=== PATIENT | female | born 1985 | race Caucasian/White ===

== ENCOUNTER → 2016-11-25 | Outpatient (CLI) | payer MEDICAID, OTHER ==
[2016-11-25 14:54] LABS: ALT 47 U/L (9-52); AST 34 U/L (14-36); Alkaline Phosphatase 76 U/L (38-126); Anion Gap 12 mmol/L; Blood Urea Nitrogen 13 mg/dL (7-17); Calcium 9.9 mg/dL (8.4-10.2); Carbon Dioxide 27 mmol/L (22-30); Chloride 101 mmol/L (98-107); Cholesterol 169 mg/dL (<200); Glucose 101 mg/dL (74-99); HDL Cholesterol 91 mg/dL (40-60); Non-African American GFR(MDRD) >60 (>60 ml/min/1.73 sqM); Potassium 4.6 mmol/L (3.5-5.1); Sodium 140 mmol/L (137-145); Total Bilirubin 0.6 mg/dL (0.2-1.3); Total Protein 7.7 g/dL (6.3-8.2); Triglycerides 240 mg/dL (<150)
[2016-11-25 15:09] LABS: HCG,Quantitative Serum <2.4 mIU/mL
== END | disposition home or self-care (01) ==
LOC: LABWHC1 13:59
PROVIDERS: ATTEND Internal Medicine
DX: L70.8 Other acne (principal)
CPT/HCPCS: 36415; 80053; 80061; 84439; 84443; 84702

== ENCOUNTER 2017-11-23 08:55 | Emergency (ER) | payer MEDICAID, OTHER ==
[2017-11-23 09:04] VITALS: BP 160/89; PULSE 114; RESP 18; TEMP 98.9
--- NOTE | 2017-11-23 09:43 | ED ---
General Adult HPI - General Chief complaint: Extremity Injury, Upper Stated complaint: Broken arm Time Seen by Provider: 11/23/17 09:18 Source: patient, RN notes reviewed Mode of arrival: ambulatory Limitations: no limitations - History of Present Illness Initial comments: Patient is a 32-year-old female who presents emergency room today with a chief complaint of injury to the right wrist that occurred last approximate of 30. States that she tripped over some shoes falling backwards landing on the right wrist. She states it was outstretched. She does admit to more pain to the posterior radius. Patient states worse with movements of flexion and extension. Patient also admits to pain when she moves her fingers feeling the back and right wrist. Swelling to the area. She denies any other complaints. Patient denies any recent fever, chills, shortness of breath, chest pain, back pain, abdominal pain, nausea or vomiting, numbness or tingling, headaches or visual changes, or any other complaints. - Related Data Home Medications Medication Instructions Recorded Confirmed Cetirizine HCl [Zyrtec] 10 mg PO DAILY 06/07/16 11/23/17 Ibuprofen [Motrin] 600 mg PO Q8HR PRN 06/07/16 11/23/17 Norethindrone AC-Eth Estradiol 1 tab PO DAILY 06/07/16 11/23/17 [Loestrin 21 1-20 Tablet] DULoxetine HCL [Cymbalta] 90 mg PO DAILY 11/23/17 11/23/17 Lisdexamfetamine Dimesylate 30 mg PO QAM 11/23/17 11/23/17 [Vyvanse] Previous Rx's Medication Instructions Recorded Ibuprofen [Motrin] 600 mg PO Q6HR PRN #40 day 11/23/17 Allergies Allergy/AdvReac Type Severity Reaction Status Date / Time Tetracyclines AdvReac Nausea & Verified 11/23/17 09:40 Vomiting & Diarrhea Review of Systems ROS Statement: Those systems with pertinent positive or pertinent negative responses have been documented in the HPI. ROS Other: All systems not noted in ROS Statement are negative. Past Medical History Past Medical History: No Reported History History of Any Multi-Drug Resistant Organisms: None Reported Past Surgical History: Cholecystectomy Additional Past Surgical History / Comment(s): right knee scope Past Psychological History: Anxiety, Depression Smoking Status: Current every day smoker Past Alcohol Use History: Occasional Past Drug Use History: None Reported General Exam - General Exam Comments Initial Comments: General: The patient is awake and alert, in no distress, and does not appear acutely ill. Neck: The neck is supple. Musculoskeletal: Patient does have moderate swelling in the right wrist down to the right hand. She shows limited range motional flexion and extension at the right wrist. Able to fully open and close fingers. Able to fully open and extend at the right elbow there is no tenderness down into the digits or the right elbow. She is tender mildly over the distal ulna with increased tenderness to the distal radius. Her sensations are intact pulses equal bilaterally 2+. Neurological: A&O x 3. CN II-XII intact, There are no obvious motor or sensory deficits. Coordination appears grossly intact. Speech is normal. Skin: Skin is warm and dry and no rashes or lesions are noted. Psychiatric: Normal mood and affect. Limitations: no limitations Course Vital Signs 11/23/17 09:01 Temperature 98.9 F Pulse Rate 114 H Respiratory 18 Rate Blood Pressure 160/89 O2 Sat by Pulse 100 Oximetry Medical Decision Making - Medical Decision Making Patient's x-ray of the right wrist reviewed and does show a avulsion type fracture of the distal radius. Patient has been splinted in a short arm thumb spica. Neurovascular rechecked and intact. Patient is advised follow-up with orthopedics. Advised to return to emergency room for any other concerns. Disposition Clinical Impression: Wrist fracture, right Disposition: HOME SELF-CARE Condition: Good Instructions: Wrist Fracture in Adults (ED) Additional Instructions: Please see splinted place until follow-up with orthopedics. Please continue to ice elevate the affected area at least 4 times a day for 20 minutes at a time. Please use Tylenol/ibuprofen for pain as needed. Please return to emergency room for any symptoms increase or worsen or for any other concerns. Prescriptions: Ibuprofen [Motrin] 600 mg PO Q6HR PRN #40 day PRN Reason: Pain Referrals: Sunitha Song MD [Primary Care Provider] - 1-2 days Sai Benitez MD [Medical Doctor] - 1-2 days Time of Disposition: 09:54
--- NOTE | 2017-11-23 10:46 | XR ---
EXAMINATION TYPE: XR wrist complete RT , 4 VIEWS DATE OF EXAM ORDERED: 11/23/2017 HISTORY: Pain. COMPARISON: None. FINDINGS: There is a minimally displaced fracture of the posterior aspect of the distal radius. Ther e is associated soft tissue swelling. IMPRESSION: MINIMALLY DISPLACED FRACTURE OF THE POSTERIOR ASPECT OF THE DISTAL RADIUS. CODE A: INITIAL ENCOUNTER FOR CLOSED FRACTURE.
== END 2017-11-23 10:15 | disposition home or self-care (01) ==
LOC: EC 08:55
DX: S52.501A Unspecified fracture of the lower end of right radius, initial encounter for closed fracture (principal); F32.9 Major depressive disorder, single episode, unspecified; F41.9 Anxiety disorder, unspecified; F17.200 Nicotine dependence, unspecified, uncomplicated; Z79.3 Long term (current) use of hormonal contraceptives; Z79.899 Other long term (current) drug therapy; Z88.1 Allergy status to other antibiotic agents; W01.0XXA Fall on same level from slipping, tripping and stumbling without subsequent striking against object, initial encounter
CPT/HCPCS: 29125; 99283

== ENCOUNTER → 2017-12-04 | Outpatient (CLI) | payer MEDICAID, OTHER ==
--- NOTE | 2017-12-04 14:57 | XR ---
EXAMINATION TYPE: XR chest 2V DATE OF EXAM: 12/04/2017 COMPARISON: NONE TECHNIQUE: PA and lateral views submitted. HISTORY: Cough FINDINGS: The lungs are clear and there is no pneumothorax, pleural effusion, or focal pneumonia. Surgical cl ips in the right upper quadrant abdomen. IMPRESSION: 1. No acute process.
== END | disposition home or self-care (01) ==
LOC: RADXRYALE 14:22
PROVIDERS: ATTEND Internal Medicine
DX: R05 Cough (principal)
CPT/HCPCS: 71046

== ENCOUNTER → 2017-12-09 | Outpatient (CLI) | payer MEDICAID, OTHER ==
[2017-12-11 14:52] LABS: Alt. alternata IgE Class CLASS 0; Alternaria alternata IgE <0.35 kU/L (<0.35); Asperg. fumagatus IgE <0.35 kU/L (<0.35); Asperg. fumagatus IgE Class CLASS 0; Bermuda Grass IgE <0.35 kU/L (<0.35); Birch(Com.Silvr) IgE <0.35 kU/L (<0.35); Birch(Com.Silvr) IgE Class CLASS 0; Cat Epith & Dander IgE <0.35 kU/L (<0.35); Cat Epith & Dander IgE Class CLASS 0; Clad herbarum IgE <0.35 kU/L (<0.35); Cockroach IgE <0.35 kU/L (<0.35); Cottonwood IgE <0.35 kU/L (<0.35); Dermato. Pteronyssinus IgE <0.35 kU/L (<0.35); Dermato. farinae IgE <0.35 kU/L (<0.35); Dermato. farinae IgE Class CLASS 0; Dog Dander IgE <0.35 kU/L (<0.35); Elm IgE <0.35 kU/L (<0.35); Maple (Box Elder) IgE <0.35 kU/L (<0.35); Maple (Box Elder) IgE Class CLASS 0; Mountain Cedar IgE <0.35 kU/L (<0.35); Mountain Cedar IgE Class CLASS 0; Mouse Urine IgE Class CLASS 0; Nettle IgE <0.35 kU/L (<0.35); Nettle IgE Class CLASS 0; Oak IgE <0.35 kU/L (<0.35); Penicillium notatum IgE Class CLASS 0; Rough Marshelder IgE <0.35 kU/L (<0.35); Rough Marshelder IgE Class CLASS 0; Timothy Grass IgE <0.35 kU/L (<0.35); White Ash IgE Class CLASS 0
[2017-12-14 23:20] LABS: Alternaria Alternata IgG 2.7 mcg/mL (< 13.6); Aspergillus fumigatus IgG Not detected (Not detected); Aureobasidium pullulans IgG 3.5 mcg/mL (< 13.6); Cladosporium herbarium IgG 21.4 mcg/mL (< 14.7); Phoma ssp. IgG 4.5 mcg/mL (< 6.6); Saccaharomospora viridis Not detected (Not detected); Saccaharopoly. rectivirgula Not detected (Not detected)
== END | disposition home or self-care (01) ==
LOC: LABWHC1 16:25
PROVIDERS: ATTEND Internal Medicine Sleep Medicine
DX: B44.81 Allergic bronchopulmonary aspergillosis (principal)
CPT/HCPCS: 36415; 82785; 86001; 86003; 86606; 86609

== ENCOUNTER 2018-07-20 15:24 | Emergency (ER) | payer OTHER ==
[2018-07-20 15:29] VITALS: TEMP 98.2
--- NOTE | 2018-07-20 15:51 | ED ---
General Adult HPI - General Chief complaint: Recheck/Abnormal Lab/Rx Stated complaint: HTN Source: patient, RN notes reviewed Mode of arrival: ambulatory Limitations: no limitations - History of Present Illness Initial comments: 33-year-old female presents emergency Department chief complaint of hypertension. 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 Patient states that she went to PCPs office today and they rechecked it 3 times. She states the highest was 190/110. Patient states that she was apprised that she had a go directly to the emergency Department. She states that she has never been on any medications. She denies headache, dizziness, chest pain or shortness breath, nausea, vomiting diarrhea constipation. Patient states she has had recent weight gain secondary to being off work related to fatigue and fibromyalgia. Patient states that they have not even tried her on medication for her hypertension. - Related Data Home Medications Medication Instructions Recorded Confirmed Cetirizine HCl [Zyrtec] 10 mg PO DAILY 06/07/16 07/20/18 DULoxetine HCL [Cymbalta] 60 mg PO DAILY 07/20/18 07/20/18 Ibuprofen [Advil] 200 mg PO BID 07/20/18 07/20/18 Ibuprofen [Motrin Ib] 200 mg PO Q6H PRN 07/20/18 07/20/18 Multivitamins, Thera [Multivitamin 1 tab PO DAILY 07/20/18 07/20/18 (formulary)] Pregabalin [Lyrica] 75 mg PO DAILY 07/20/18 07/20/18 Ranitidine HCl [Zantac] 150 mg PO BID PRN 07/20/18 07/20/18 Vitamin B Complex 1 cap PO DAILY 07/20/18 07/20/18 Vitamin D3(Unknown Dose) 1 tab PO DAILY 07/20/18 07/20/18 Previous Rx's Medication Instructions Recorded Lisinopril [Zestril] 10 mg PO DAILY #30 tab 07/20/18 Allergies Allergy/AdvReac Type Severity Reaction Status Date / Time Tetracyclines AdvReac Nausea & Verified 07/20/18 15:47 Vomiting & Diarrhea Review of Systems ROS Statement: Those systems with pertinent positive or pertinent negative responses have been documented in the HPI. ROS Other: All systems not noted in ROS Statement are negative. Past Medical History Past Medical History: No Reported History History of Any Multi-Drug Resistant Organisms: None Reported Past Surgical History: Cholecystectomy Additional Past Surgical History / Comment(s): right knee scope Past Psychological History: Anxiety, Depression Smoking Status: Current every day smoker Past Alcohol Use History: Occasional Past Drug Use History: None Reported General Exam Limitations: no limitations General appearance: alert, in no apparent distress Head exam: Present: atraumatic, normocephalic, normal inspection Eye exam: Present: normal appearance, PERRL, EOMI. Absent: scleral icterus, conjunctival injection, periorbital swelling ENT exam: Present: normal exam, normal oropharynx, mucous membranes moist Neck exam: Present: normal inspection, full ROM. Absent: tenderness, meningismus, lymphadenopathy Respiratory exam: Present: normal lung sounds bilaterally. Absent: respiratory distress, wheezes, rales, rhonchi, stridor Cardiovascular Exam: Present: regular rate, normal rhythm, normal heart sounds. Absent: systolic murmur, diastolic murmur, rubs, gallop, clicks Neurological exam: Present: alert, oriented X3, CN II-XII intact Psychiatric exam: Present: anxious Skin exam: Present: warm, dry, intact, normal color. Absent: rash Course Vital Signs 07/20/18 07/20/18 15:26 16:03 Temperature 98.2 F Pulse Rate 104 H Respiratory 20 Rate Blood Pressure 164/95 172/108 O2 Sat by Pulse 100 Oximetry EKG Findings - EKG Comments: EKG Findings:: EKG performed at 16:00 normal sinus rhythm with a rate of 95 [place] 182 QRS 82 QT/QTC 360/452 Medical Decision Making - Medical Decision Making 33-year-old female presents emergency from for hypertension. Patient's blood pressure has been elevated on several outpatient visits. Patient was sent here from PCP for elevated blood pressure which has not been treated with any medications. Patient's lab work was reviewed that she had drawn this morning which was essentially unremarkable other than mild hyponatremia at 133 potassium was 4.2 creatinine 0.9 normal LFTs. Patient is hemoglobin is 13.6 with a white count of 7.0. Remaining lab work was unremarkable. Patient did have an EKG which was unremarkable in the emergency department. Patient was started on lisinopril 10 mg daily she'll track her blood pressure at home and follow for recheck. Return parameters discussed Disposition Clinical Impression: Hypertension Disposition: HOME SELF-CARE Condition: Stable Instructions: Hypertension (ED) Additional Instructions: Please return to the Emergency Department if symptoms worsen or any other concerns. Prescriptions: Lisinopril [Zestril] 10 mg PO DAILY #30 tab Is patient prescribed a controlled substance at d/c from ED?: No Referrals: Sunitha Song MD [Primary Care Provider] - 1-2 days Time of Disposition: 16:30
[2018-07-20] MEDS ORDERED: LISINOPRIL 10 MG TAB PO STA (16:02)
[2018-07-20 16:50] VITALS: BP 176/102; PULSE 96; RESP 18
== END 2018-07-20 16:48 | disposition home or self-care (01) ==
LOC: EC 15:24
DX: I10 Essential (primary) hypertension (principal); E87.1 Hypo-osmolality and hyponatremia; R63.5 Abnormal weight gain; R53.83 Other fatigue; M79.7 Fibromyalgia; F32.9 Major depressive disorder, single episode, unspecified; F41.9 Anxiety disorder, unspecified; F17.200 Nicotine dependence, unspecified, uncomplicated; Z88.1 Allergy status to other antibiotic agents; Z79.1 Long term (current) use of non-steroidal anti-inflammatories (NSAID); Z79.899 Other long term (current) drug therapy
CPT/HCPCS: 93005; 99283

== ENCOUNTER → 2018-08-07 | Outpatient (CLI) | payer OTHER ==
--- NOTE | 2018-08-09 14:31 | MR ---
EXAMINATION TYPE: MR brain/cspine wo/w DATE OF EXAM: 08/07/2018 COMPARISON: None HISTORY: Headache, neck pain, stiffness, louie arm/leg numbness TECHNIQUE: Multiplanar, multisequence images of the brain and brainstem, cervical spine is performed without and with IV contrast, utilizing 12 mL intravenous Gadavist . FINDINGS: Diffusion weighted images demonstrate no evidence of a recent infarct or other diffusion ab normality. There is no extra-axial fluid collection or significant white matter signal abnormality. The ventricular system and cisternal spaces are normal in size and appearance. The brain volume is age appropriate. Midline structures demonstrate normal morphology. The craniocervical junction appears within normal limits. Post contrast images demonstrate no abnormal enhancement. The dural venous sinuses appear pa tent. The visualized sinuses are remarkable for inflammatory change in the maxillary sinuses left gre ater than right, ethmoid air cells and the globes are intact. IMPRESSION: Normal brain MRI pre and postcontrast. There is sinus disease. Cervical spine MRI: Cervical vertebral bodies show preserved height and alignment. There is loss of d isc height and signal present at C5-6 with associated spondylosis. Posterior extension of endplate di sc complex results in some mild anterior mass effect on the thecal sac. Uncovertebral joint hypertrop hy results in foraminal encroachment greater on the left than on the right. Cervical cord signal is n ormal. Remaining cervical spine levels are normal. There is some enhancement posterior to the disc space at C5-6 likely some local granulation tissue. IMPRESSION: Mild degenerative disc disease.
== END ==
LOC: RADMRIMAIN 19:53
PROVIDERS: ATTEND Psychiatry & Neurology Neurology
DX: R51 Headache (principal); M50.30 Other cervical disc degeneration, unspecified cervical region
CPT/HCPCS: 70553; 72156; A9581

== ENCOUNTER → 2019-01-13 | Outpatient (CLI) | payer OTHER ==
[2019-01-13 12:36] LABS: Basophils % (A) 0 %; Eosinophils # (A) 0.2 k/uL (0-0.7); Eosinophils % (A) 3 %; HCT 43.5 % (34.0-46.0); HGB 13.6 gm/dL (11.4-16.0); Lymphocytes # (A) 2.6 k/uL (1.0-4.8); Lymphocytes % (A) 30 %; MCH 27.7 pg (25.0-35.0); MCHC 31.3 g/dL (31.0-37.0); MCV 88.4 fL (80.0-100.0); Mean Platelet Volume 6.5; Monocytes # (A) 0.4 k/uL (0-1.0); Monocytes % (A) 5 %; Neutrophils # (A) 5.3 k/uL (1.3-7.7); Neutrophils % (A) 61 %; Platelet Count 280 k/uL (150-450); RBC 4.92 m/uL (3.80-5.40); RDW 13.1 % (11.5-15.5); WBC 8.7 k/uL (3.8-10.6)
[2019-01-13 14:05] LABS: Erythrocyte Sedimentation Rate 8 mm/hr (0-20)
[2019-01-13 16:50] LABS: Anti-DNA, DS unit <1.0 IU/mL; Cyclic Citrullinated Pep IgG NEGATIVE (NEGATIVE); DNA Double-Stranded NEGATIVE (NEGATIVE); RNP <0.2 AI; Rheumatoid Factor 8 IU/mL (0-15); Scleroderma SC-70 Ab 0.3 AI
[2019-01-13 16:51] LABS: Cardiolipin IgA Antibody <0.5 U/mL
[2019-01-13 16:52] LABS: Cardiolipin Ab IgG Interp NEGATIVE (NEGATIVE); Cardiolipin Ab IgM Interp NEGATIVE (NEGATIVE); Cardiolipin IgM Antibody 1.8 U/mL
[2019-01-13 16:53] LABS: EBV-VCA (IgG) >8.0 AI
[2019-01-13 16:59] LABS: C Reactive Protein 1.7 mg/dL (0.0-0.8); T3, Uptake 26 % (23-37)
[2019-01-13 17:08] LABS: T4, Free (Free Thyroxine) 1.1 ng/dL (0.80-1.80)
[2019-01-14 12:11] LABS: T4/T8 Ratio (CD4:CD8) 1.9 (1.0-3.7)
[2019-01-14 12:51] LABS: IgG Subclass 3 29.3 mg/dL (11.0-85.0); IgG Subclass 4 31.4 mg/dL (3.0-175.0); Immunoglobulin M 76.4 mg/dL (40.0-280.0)
[2019-01-15 13:30] LABS: Histone Antibody 0.3 UNITS (<1.0)
== END | disposition home or self-care (01) ==
LOC: LABWHC1 11:14
PROVIDERS: ATTEND Allergy & Immunology
DX: D89.89 Other specified disorders involving the immune mechanism, not elsewhere classified (principal)
CPT/HCPCS: 36415; 82784; 82785; 82787; 83516; 83615; 84439; 84443; 84479; 84481; 85025; 85652; 86003; 86038; 86140; 86147; 86200; 86225; 86235; 86317; 86355; 86357; 86359; 86360; 86431; 86663; 86664; 86665; 86684

== ENCOUNTER 2019-02-16 18:16 | Emergency (ER) | payer OTHER ==
[2019-02-16 18:24] VITALS: RESP 18
[2019-02-16] MEDS ORDERED: MECLIZINE 12.5 MG TAB PO STA (19:00)
[2019-02-16] MEDS ORDERED: SODIUM CHLORIDE 0.9% 1,000 ML IV STA (19:00)
[2019-02-16 19:22] LABS: ALT 32 U/L (9-52); AST 40 U/L (14-36); Albumin 4.7 g/dL (3.5-5.0); Alkaline Phosphatase 84 U/L (38-126); Anion Gap 11 mmol/L; Blood Urea Nitrogen 11 mg/dL (7-17); Carbon Dioxide 23 mmol/L (22-30); Chloride 104 mmol/L (98-107); Glucose 91 mg/dL (74-99); Sodium 138 mmol/L (137-145); Total Bilirubin 0.7 mg/dL (0.2-1.3); Total Protein 7.4 g/dL (6.3-8.2)
[2019-02-16 19:23] LABS: Basophils % (A) 0 %; Eosinophils # (A) 0.1 k/uL (0-0.7); Eosinophils % (A) 1 %; HCT 43.1 % (34.0-46.0); HGB 14.4 gm/dL (11.4-16.0); Lymphocytes # (A) 2.4 k/uL (1.0-4.8); Lymphocytes % (A) 27 %; MCH 28.9 pg (25.0-35.0); MCHC 33.5 g/dL (31.0-37.0); MCV 86.2 fL (80.0-100.0); Mean Platelet Volume 7.3; Monocytes # (A) 0.3 k/uL (0-1.0); Monocytes % (A) 4 %; Neutrophils # (A) 5.9 k/uL (1.3-7.7); Neutrophils % (A) 66 %; Platelet Count 286 k/uL (150-450); RDW 13.6 % (11.5-15.5)
[2019-02-16 19:28] LABS: INR 0.9 (<1.2); Partial Thromboplastin Time 24.6 sec (22.0-30.0); Prothrombin Time 9.5 sec (9.0-12.0)
--- NOTE | 2019-02-16 19:52 | XR ---
EXAMINATION: XR chest 2V DATE AND TIME: 02/16/2019 7:34 PM CLINICAL INDICATION: PHH; Dyspnea TECHNIQUE: Departmental protocol COMPARISON: None FINDINGS: The lungs are clear. The pleural spaces are negative. The cardiac silhouette is not enlarged. The remainder of the mediastinal silhouette is unremarkable. The skeletal structures and soft tissues are negative for acute findings. IMPRESSION: NO ACUTE PROCESS.
[2019-02-16 20:03] LABS: Appearance,Urine Clear (Clear); Bilirubin,Urine Negative (Negative); Blood,Urine Negative (Negative); Color,Urine Light Yellow; Glucose,Urine (UA) Negative (Negative); Ketones,Urine Negative (Negative); Leukocyte Esterase,Urine Negative (Negative); Nitrite,Urine Negative (Negative); PH, Urine 6.5 (5.0-8.0); Protein,Urine Negative (Negative); Specific Gravity,Urine 1.003 (1.001-1.035); Urobilinogen,Urine <2.0 mg/dL (<2.0)
--- NOTE | 2019-02-16 20:15 | ED ---
Dizziness HPI - General Chief Complaint: Dizziness Stated Complaint: Dizziness Time Seen by Provider: 02/16/19 18:35 Source: patient Mode of arrival: wheelchair Limitations: no limitations - History of Present Illness Initial Comments: 33-year-old female patient presents to the emergency department today for evaluation of dizziness, weakness, and paresthesia to the bilateral hands and feet. Patient states that she has been feeling unwell over the last several weeks however the laceration is felt more fatigued and weak. Patient states that today she got in the hot tub this evening help her feel better when she got out of the hot tub she became very dizzy. Patient states that the numbness and tingling became worse. Patient states that she did have a snack and might down to see what would help her feel better but it did not. Patient states he remains dizzy even neurovascular does worsen when she stands up. This history is also having ringing in her ears. Denies any headache, blurred vision, or double vision. Denies any nausea or vomiting or chest pain. States that she is having some shortness of breath with this. Patient states that she was diagnosed with mono several weeks ago she did recently complete a prescription of antibiotics. She is being worked up for an autoimmune disorder by an cloth finisher. Patient denies any recent rash, fever, chills, abdominal pain, diarrhea, constipation, back pain, dizziness, weakness, hematuria, dysuria, urinary urgency, urinary frequency, or any other complaints. - Related Data Home Medications Medication Instructions Recorded Confirmed Cetirizine HCl [Zyrtec] 10 mg PO DAILY 06/07/16 02/16/19 Ibuprofen [Motrin Ib] 200 - 400 mg PO Q6H PRN 07/20/18 02/16/19 Multivitamins, Thera [Multivitamin 1 tab PO DAILY 07/20/18 02/16/19 (formulary)] Cholecalciferol [Vitamin D3] 1,000 unit PO DAILY 02/16/19 02/16/19 Magnesium 200 mg PO DAILY 02/16/19 02/16/19 Previous Rx's Medication Instructions Recorded Lisinopril [Zestril] 10 mg PO DAILY #30 tab 07/20/18 Allergies Allergy/AdvReac Type Severity Reaction Status Date / Time Tetracyclines AdvReac Nausea & Verified 02/16/19 18:47 Vomiting & Diarrhea Review of Systems ROS Statement: Those systems with pertinent positive or pertinent negative responses have been documented in the HPI. ROS Other: All systems not noted in ROS Statement are negative. Past Medical History Past Medical History: No Reported History History of Any Multi-Drug Resistant Organisms: None Reported Past Surgical History: Cholecystectomy Additional Past Surgical History / Comment(s): right knee scope Past Psychological History: Anxiety, Depression Smoking Status: Current every day smoker Past Alcohol Use History: Occasional Past Drug Use History: None Reported General Exam Limitations: no limitations General appearance: alert, in no apparent distress, other (Physical well-develop ed, well-nourished adult female patient in no acute distress. Vital signs upon presentation are temperature 98.0F, pulse 104, respirations 18, blood pressure 140/90, pulse ox 100% on room air.) Eye exam: Present: normal appearance, PERRL, EOMI. Absent: scleral icterus, co njunctival injection, nystagmus, periorbital swelling ENT exam: Present: normal exam, normal oropharynx, mucous membranes moist, TM's normal bilaterally Respiratory exam: Present: normal lung sounds bilaterally. Absent: respiratory distress, wheezes, rales, rhonchi, stridor Cardiovascular Exam: Present: normal rhythm, tachycardia, normal heart sounds. Absent: systolic murmur, diastolic murmur, rubs, gallop, clicks GI/Abdominal exam: Present: soft, normal bowel sounds. Absent: distended, tende rness, guarding, rebound, rigid Neurological exam: Present: alert, oriented X3, CN II-XII intact Psychiatric exam: Present: normal affect, normal mood Skin exam: Present: warm, dry, intact, normal color. Absent: rash Course Vital Signs 02/16/19 02/16/19 02/16/19 18:21 18:45 19:12 Temperature 98.0 F Pulse Rate 104 H Pulse Rate [ 106 H 105 H [place] ] Respiratory 18 18 Rate Blood Pressure 149/90 Blood Pressure [Sitting] Blood Pressure [Standing] Blood Pressure 147/97 [Supine] O2 Sat by Pulse 100 Oximetry 02/16/19 02/16/19 02/16/19 19:14 19:17 21:15 Temperature Pulse Rate 103 H Pulse Rate [ 101 H 112 H [place] ] Respiratory 18 18 18 Rate Blood Pressure 129/82 Blood Pressure 175/119 [Sitting] Blood Pressure 157/122 [Standing] Blood Pressure [Supine] O2 Sat by Pulse 98 97 Oximetry 02/16/19 02/16/19 02/16/19 21:48 22:28 22:32 Temperature 98.5 F Pulse Rate 98 99 Pulse Rate [ [place] ] Respiratory 18 18 Rate Blood Pressure 139/84 127/80 114/60 Blood Pressure [Sitting] Blood Pressure [Standing] Blood Pressure [Supine] O2 Sat by Pulse 100 99 Oximetry EKG Findings - EKG Comments: EKG Findings:: EKG obtained at 1925 shows sinus tachycardia with a ventricular rate of 103, TN interval 180, QRS duration 86, QT 352, QTc 461. No evidence of ST elevation or depression. Medical Decision Making - Medical Decision Making 33-year-old female patient presents to the emergency department today for evaluation of dizziness, paresthesia to the bilateral hands and bilateral feet, and generalized weakness. Physical examination is unremarkable. Patient is neurologically intact with no focal deficits. Labs reviewed and were unremarkable. Chest x-ray showed no acute cardiopulmonary process. Patient was given meclizine. Upon reevaluation patient states that she is not feeling any better. She was given IV Valium and a CT of the brain was ordered. CT was unremarkable. Patient reports feeling tired from the Valium but no improvement of symptoms. Patient remains neurologically intact. She will be discharged home at this time to follow-up with her primary care physician for recheck. We did discuss that they mono infection could be causing her symptoms. She is instructed to follow-up with her cloth finisher for recheck as soon as possible. Return parameters were discussed in detail. She verbalizes understanding. - Lab Data Result diagrams: 02/16/19 18:43 02/16/19 18:43 Lab Results 02/16/19 02/16/19 02/16/19 Range/Units 18:43 18:43 18:43 WBC 9.0 (3.8-10.6) k/uL RBC 5.00 (3.80-5.40) m/uL Hgb 14.4 (11.4-16.0) gm/dL Hct 43.1 (34.0-46.0) % MCV 86.2 (80.0-100.0) fL MCH 28.9 (25.0-35.0) pg MCHC 33.5 (31.0-37.0) g/dL RDW 13.6 (11.5-15.5) % Plt Count 286 (150-450) k/uL Neutrophils % 66 % Lymphocytes % 27 % Monocytes % 4 % Eosinophils % 1 % Basophils % 0 % Neutrophils # 5.9 (1.3-7.7) k/uL Lymphocytes # 2.4 (1.0-4.8) k/uL Monocytes # 0.3 (0-1.0) k/uL Eosinophils # 0.1 (0-0.7) k/uL Basophils # 0.0 (0-0.2) k/uL PT 9.5 (9.0-12.0) sec INR 0.9 (<1.2) APTT 24.6 (22.0-30.0) sec Sodium 138 (137-145) mmol/L Potassium 5.0 (3.5-5.1) mmol/L Chloride 104 (98-107) mmol/L Carbon Dioxide 23 (22-30) mmol/L Anion Gap 11 mmol/L BUN 11 (7-17) mg/dL Creatinine 0.67 (0.52-1.04) mg/dL Est GFR (CKD-EPI)AfAm >90 (>60 ml/min/1.73 sqM) Est GFR (CKD-EPI)NonAf >90 (>60 ml/min/1.73 sqM) Glucose 91 (74-99) mg/dL Calcium 10.0 (8.4-10.2) mg/dL Total Bilirubin 0.7 (0.2-1.3) mg/dL AST 40 H (14-36) U/L ALT 32 (9-52) U/L Alkaline Phosphatase 84 (38-126) U/L Troponin I (0.000-0.034) ng/mL Total Protein 7.4 (6.3-8.2) g/dL Albumin 4.7 (3.5-5.0) g/dL TSH 2.480 (0.465-4.680) mIU/L Urine Color Urine Appearance (Clear) Urine pH (5.0-8.0) Ur Specific [place] (1.001-1.035) Urine Protein (Negative) Urine Glucose (UA) (Negative) Urine Ketones (Negative) Urine Blood (Negative) Urine Nitrite (Negative) Urine Bilirubin (Negative) Urine Urobilinogen (<2.0) mg/dL Ur Leukocyte Esterase (Negative) Urine HCG, Qual (Not Detectd) 02/16/19 02/16/19 02/16/19 Range/Units 18:43 19:30 19:30 WBC (3.8-10.6) k/uL RBC (3.80-5.40) m/uL Hgb (11.4-16.0) gm/dL Hct (34.0-46.0) % MCV (80.0-100.0) fL MCH (25.0-35.0) pg MCHC (31.0-37.0) g/dL RDW (11.5-15.5) % Plt Count (150-450) k/uL Neutrophils % % Lymphocytes % % Monocytes % % Eosinophils % % Basophils % % Neutrophils # (1.3-7.7) k/uL Lymphocytes # (1.0-4.8) k/uL Monocytes # (0-1.0) k/uL Eosinophils # (0-0.7) k/uL Basophils # (0-0.2) k/uL PT (9.0-12.0) sec INR (<1.2) APTT (22.0-30.0) sec Sodium (137-145) mmol/L Potassium (3.5-5.1) mmol/L Chloride (98-107) mmol/L Carbon Dioxide (22-30) mmol/L Anion Gap mmol/L BUN (7-17) mg/dL Creatinine (0.52-1.04) mg/dL Est GFR (CKD-EPI)AfAm (>60 ml/min/1.73 sqM) Est GFR (CKD-EPI)NonAf (>60 ml/min/1.73 sqM) Glucose (74-99) mg/dL Calcium (8.4-10.2) mg/dL Total Bilirubin (0.2-1.3) mg/dL AST (14-36) U/L ALT (9-52) U/L Alkaline Phosphatase (38-126) U/L Troponin I <0.012 (0.000-0.034) ng/mL Total Protein (6.3-8.2) g/dL Albumin (3.5-5.0) g/dL TSH (0.465-4.680) mIU/L Urine Color Light Yellow Urine Appearance Clear (Clear) Urine pH 6.5 (5.0-8.0) Ur Specific [place] 1.003 (1.001-1.035) Urine Protein Negative (Negative) Urine Glucose (UA) Negative (Negative) Urine Ketones Negative (Negative) Urine Blood Negative (Negative) Urine Nitrite Negative (Negative) Urine Bilirubin Negative (Negative) Urine Urobilinogen <2.0 (<2.0) mg/dL Ur Leukocyte Esterase Negative (Negative) Urine HCG, Qual Not Detected (Not Detectd) - Radiology Data Radiology results: report reviewed, image reviewed Two-view x-ray of the chest is obtained. Report reviewed in its entirety. Impression by Dr. Jennifer Geller shows no acute process. CT brain without contrast was obtained. Report was reviewed in its entirety. Impression by Dr. Jennifer Geller shows no acute process. Disposition Clinical Impression: Weakness, Fatigue, Near syncope Disposition: HOME SELF-CARE Condition: Good Instructions (If sedation given, give patient instructions): Weakness (ED), N ear Syncope (ED), Fatigue (ED) Additional Instructions: Increase fluids. Rest. Follow up to primary care physician for recheck tomorrow. Return to the emergency department immediately for any new, worsening, or concerning symptoms. Is patient prescribed a controlled substance at d/c from ED?: No Referrals: Sunitha Song MD [Primary Care Provider] - 1-2 days Time of Disposition: 22:25
[2019-02-16] MEDS ORDERED: DIAZEPAM 5 MG/ML 2 ML INJ IVP STA (21:15)
--- NOTE | 2019-02-16 21:43 | CT ---
EXAMINATION: CT brain wo con DATE AND TIME: 02/16/2019 9:33 PM CLINICAL INDICATION: PHH; Pain TECHNIQUE: Standard departmental protocol.; 1148.4; COMPARISON: 10/01/2011 FINDINGS: The calvarium is intact. There is no intracranial hemorrhage. There is no intracranial mass or mass effect. No definite new intra-axial or extra-axial attenuation defect. The paranasal sinuses show only scan scattered mucosal thickening and fluid, entirely nonspecific but which can correlate with a clinical diagnosis of sinusitis. The middle ear cavities, and mastoid sinus air cells are clear. The orbits are unremarkable. IMPRESSION: NO ACUTE PROCESS.
[2019-02-16 22:32] VITALS: BP 114/60; PULSE 99; TEMP 98.5
== END 2019-02-16 22:39 | disposition home or self-care (01) ==
LOC: EC 18:16
DX: R53.1 Weakness (principal); R55 Syncope and collapse; R53.83 Other fatigue; R00.0 Tachycardia, unspecified; R20.2 Paresthesia of skin; R20.0 Anesthesia of skin; R06.02 Shortness of breath; F17.200 Nicotine dependence, unspecified, uncomplicated; Z88.1 Allergy status to other antibiotic agents; Z79.899 Other long term (current) drug therapy; Z86.19 Personal history of other infectious and parasitic diseases
CPT/HCPCS: 36415; 93005; 80053; 84443; 84484; 85025; 85610; 85730; 81003; 81025; 71046; 70450; 99284; 96374; 96361 ×3; J3360

== ENCOUNTER → 2020-05-10 | Outpatient (CLI) | payer OTHER ==
--- NOTE | 2020-05-10 18:35 | MR ---
EXAMINATION TYPE: MR knee LT wo con DATE OF EXAM: 05/10/2020 COMPARISON: None HISTORY: Chronic left knee pain, no trauma TECHNIQUE: Multiplanar, multisequence images of the knee is performed without IV contrast. FINDINGS: MEDIAL MENISCUS: Anterior and posterior horns are intact without tear. LATERAL MENISCUS: Anterior and posterior horns are intact without tear. CRUCIATE LIGAMENTS: There is thickening with increased signal involving the ACL felt to reflect chron ic tear. There is evidence of ganglion cyst adjacent to the ACL measuring 8 mm with multiple septatio ns noted. PCL is intact. COLLATERAL LIGAMENTS: The medial collateral ligament and lateral collateral ligament complex are inta ct and unremarkable. EXTENSOR MECHANISM: Visualized quadriceps and patellar tendons are intact. EFFUSION: No significant suprapatellar joint effusion. POPLITEAL CYST: No popliteal/rice cyst. TRICOMPARTMENT SPACES: Well-maintained CARTILAGE: Intact BONE MARROW SIGNAL: Subchondral cyst formation distal femur and proximal tibial plateau centrally. OT HER: No additional significant abnormality is appreciated. IMPRESSION: 1.There is thickening with increased signal involving the ACL felt to reflect chronic tear. There is evidence of ganglion cyst adjacent to the ACL measuring 8 mm with multiple septations noted.
== END | disposition home or self-care (01) ==
LOC: RADMRIMAIN 17:19
PROVIDERS: ATTEND Orthopaedic Surgery
DX: M25.862 Other specified joint disorders, left knee (principal); S83.512A Sprain of anterior cruciate ligament of left knee, initial encounter; M67.462 Ganglion, left knee

== ENCOUNTER → 2020-05-15 | Outpatient (CLI) | payer OTHER ==
[2020-05-15 14:57] LABS: Basophils % (A) 0 %; Eosinophils # (A) 0.3 k/uL (0-0.7); Eosinophils % (A) 3 %; HCT 41.7 % (34.0-46.0); HGB 13.1 gm/dL (11.4-16.0); Lymphocytes # (A) 2.2 k/uL (1.0-4.8); Lymphocytes % (A) 26 %; MCH 28.7 pg (25.0-35.0); MCHC 31.4 g/dL (31.0-37.0); MCV 91.6 fL (80.0-100.0); Mean Platelet Volume 7.4; Monocytes # (A) 0.3 k/uL (0-1.0); Monocytes % (A) 4 %; Neutrophils # (A) 5.6 k/uL (1.3-7.7); Neutrophils % (A) 65 %; Platelet Count 251 k/uL (150-450); RBC 4.55 m/uL (3.80-5.40); RDW 12.7 % (11.5-15.5); WBC 8.6 k/uL (3.8-10.6)
[2020-05-15 14:58] LABS: Appearance,Urine Clear (Clear); Bilirubin,Urine Negative (Negative); Blood,Urine Negative (Negative); Color,Urine Light Yellow; Glucose,Urine (UA) Negative (Negative); Ketones,Urine 1+ (Negative); Leukocyte Esterase,Urine Negative (Negative); Nitrite,Urine Negative (Negative); Protein,Urine Negative (Negative); Specific Gravity,Urine 1.003 (1.001-1.035); Urobilinogen,Urine <2.0 mg/dL (<2.0)
[2020-05-15 20:26] LABS: African American GFR (CKD) 136.9 (60.0-200.0); Albumin 4.5 g/dL (3.80-4.90); Albumin/Globulin Ratio 2.5 (1.60-3.17); Anion Gap 5.7 mmol/L (4.00-12.00); BUN/Creat Ratio 18.33 Ratio (12.00-20.00); Calcium 9.5 mg/dL (8.7-10.3); Carbon Dioxide 28.3 mmol/L (21.6-31.8); Globulin 1.8 g/dL (1.6-3.3); Non-African American GFR(CKD) 118.1 (60.0-200.0); Potassium 4.6 mmol/L (3.5-5.5); Total Bilirubin 0.4 mg/dL (0.3-1.2); Total Protein 6.3 g/dL (6.2-8.2)
[2020-05-15 20:32] LABS: Protein, Total 6.3 g/dL (6.2-8.2)
[2020-05-15 20:52] LABS: Anti-DNA, DS unit <1.0 IU/mL; Anti-Smith Ab Interp NEGATIVE (NEGATIVE); Cyclic Citrull Pep IgG Unit <0.5 U/mL; Cyclic Citrullinated Pep IgG NEGATIVE (NEGATIVE); DNA Double-Stranded NEGATIVE (NEGATIVE)
[2020-05-15 21:28] LABS: Erythrocyte Sedimentation Rate 6 mm/Hr (0-20)
[2020-05-15 21:48] LABS: Hepatitis B Surface Antigen Non-Reactive (Non-Reactive); Hepatitis C IgG Antibody Non-Reactive (Non-Reactive)
[2020-05-16 11:21] LABS: HLA B27 NEGATIVE
[2020-05-16 14:06] LABS: Albumin 4.01 g/dL (3.80-4.90); Gamma Globulin 0.59 g/dL (0.70-1.50)
== END | disposition home or self-care (01) ==
LOC: LABWHC1 12:49
PROVIDERS: ATTEND Internal Medicine Rheumatology
DX: M79.641 Pain in right hand (principal)
CPT/HCPCS: 36415; 80053; 81003; 84165; 85025; 85652; 86038; 86140; 86160; 86200; 86225; 86235; 86334; 86431; 86480; 86704; 86803; 86812; 87340

== ENCOUNTER → 2020-07-25 | Outpatient (CLI) | payer OTHER ==
[2020-07-25 16:44] LABS: Basophils # (A) 0.1 k/uL (0-0.2); Basophils % (A) 1 %; Eosinophils # (A) 0.2 k/uL (0-0.7); Eosinophils % (A) 2 %; HCT 44.1 % (34.0-46.0); HGB 14.1 gm/dL (11.4-16.0); Lymphocytes # (A) 2.8 k/uL (1.0-4.8); Lymphocytes % (A) 28 %; MCH 28.9 pg (25.0-35.0); MCHC 31.9 g/dL (31.0-37.0); MCV 90.5 fL (80.0-100.0); Monocytes # (A) 0.5 k/uL (0-1.0); Monocytes % (A) 5 %; Neutrophils # (A) 6.3 k/uL (1.3-7.7); Neutrophils % (A) 63 %; Platelet Count 249 k/uL (150-450); RBC 4.87 m/uL (3.80-5.40); RDW 12.1 % (11.5-15.5)
[2020-07-25 16:50] LABS: Potassium 4.2 mmol/L (3.5-5.1)
== END | disposition home or self-care (01) ==
LOC: LABPAT 16:10
PROVIDERS: ATTEND Orthopaedic Surgery
DX: Z01.818 Encounter for other preprocedural examination (principal); S83.512D Sprain of anterior cruciate ligament of left knee, subsequent encounter
CPT/HCPCS: 36415; 80051; 85025

== ENCOUNTER 2020-07-27 08:48 | Day surgery (SDC) | payer OTHER ==
[2020-07-24 10:46] VITALS: BMI 39.4
--- NOTE | 2020-07-26 16:09 | HP ---
HISTORY AND PHYSICAL DATE OF SURGERY: 07/27/2020 Candi Tijerina is a 35-year-old patient seen with progressive left knee pain and instability consistent with anterior cruciate ligament tear. We discussed options for treatment. She elected to proceed with left knee arthroscopy with allograft, ACL reconstruction. Consent regarding the procedure was obtained. PAST MEDICAL HISTORY: Hypertension, asthma. PAST SURGICAL HISTORY: Cholecystectomy, right knee arthroscopy. DAILY MEDICATIONS: Ibuprofen, lisinopril, Zyrtec. ALLERGIES: NONE. SOCIAL HISTORY: Smokes one half pack of cigarettes daily. PHYSICAL EVALUATION OF THE LEFT KNEE: Range of motion is zero to 120. Medial and lateral joint line tenderness. Mild effusion. Positive medial Farhan's. Plus 1 to 2 Marian. Pivot shift equivocal. Distal neurovascular exam is intact. RADIOGRAPHS: Radiographs of the left knee revealed mild osteoarthritis. Left knee MRI revealed ACL tear. IMPRESSION: 1. Internal derangement of left knee with anterior cruciate ligament tear and possible meniscal tear. 2. Hypertension. PLAN: Left knee arthroscopy with allograft with anterior cruciate ligament reconstruction, partial meniscectomy and debridement. MMODL / IJN: [id number] /
[~2020-07-27 08:48] MED LIST: DEXAMETHASONE SOD PHOSPHATE 10 MG/ML 1 ML VIAL IV ONE; LACTATED RINGERS 1,000 ML IV SCH
[2020-07-27] MEDS: ONDANSETRON 4 MG/2 ML VIAL IVP ONE ×2 (09:30→11:49)
[2020-07-27 09:32] LABS: Glucose,Whole Blood 111 mg/dL (75-99)
[2020-07-27] MEDS ORDERED: SCOPOLAMINE 1.5MG/72HR PATCH TRANSDERM ONE (09:33)
[2020-07-27] MEDS ORDERED: MIDAZOLAM 2 MG/2 ML VIAL IV ONE (09:40)
[2020-07-27] MEDS ORDERED: LIDOCAINE 1% INJ 10MG/ML (20 ML MDV) ONE (10:01)
[2020-07-27] MEDS ORDERED: HYDROmorphone (PF) 1 MG/ML ONE (10:01)
[2020-07-27] MEDS ORDERED: KETOROLAC 15 MG/ML 1 ML VIAL ONE (10:01)
[2020-07-27] MEDS ORDERED: fentaNYL (PF) 50 MCG/ML 2 ML AMP ONE (10:01)
[2020-07-27] MEDS ORDERED: PROPOFOL 10 MG/ML 20 ML VIAL IV ONE (10:01)
[2020-07-27] MEDS ORDERED: ROPIVACAINE 5 MG/ML 30 ML VIAL ONE (10:01)
--- NOTE | 2020-07-27 10:02 | P.ANPRN ---
Procedure Note - Anesthesia - Nerve Block Performed Left Adductor Canal Single Time Out Performed: Yes Date of Procedure: 07/27/20 Procedure Start Time: 09:39 Procedure Stop Time: 09:46 Location of Patient: PreOp Indication: Acute Post-Operative Pain, Requested by Surgeon Sedation Type: Sedate with meaningful contact maintained Preparation: Sterile Prep, Sterile Dressing Position: Supine Catheter: None Needle Types: On-Q Needle Gauge: 20 Ultrasound used to visualize needle placement: Yes Ultrasound used to observe medication spread: Yes Injectate: 0.5% Ropivacaine (see comment for volume) (20 ml + decadron 3 mg) Blood Aspirated: No Pain Paresthesia on Injection Noted: No Resistance on Injection: Normal Left Other (see comment) Single Time Out Performed: Yes (Rose) Date of Procedure: 07/27/20 Procedure Start Time: 09:47 Procedure Stop Time: 09:54 Location of Patient: PreOp Indication: Acute Post-Operative Pain, Requested by Surgeon Sedation Type: Sedate with meaningful contact maintained Preparation: Sterile Prep, Sterile Dressing Position: Right Lateral Catheter: None Needle Types: Pajunk Needle Gauge: 20 Ultrasound used to visualize needle placement: Yes Ultrasound used to observe medication spread: Yes Injectate: 0.5% Ropivacaine (see comment for volume) (10 ml + decadron 1 mg) Blood Aspirated: No Pain Paresthesia on Injection Noted: No Resistance on Injection: Normal Image Stored and Saved: Yes Events: Uneventful and Well Tolerated
[2020-07-27] MEDS ORDERED: BUPIVACAINE (PF) 0.25% 30 ML VIAL INTRAARTIC ONE (10:36)
[2020-07-27 11:51] VITALS: TEMP 98.6
[2020-07-27] MEDS ORDERED: diphenhydrAMINE 50 MG/ML 1 ML VIAL IVP ONE (11:54)
[2020-07-27] MEDS: HYDROmorphone 0.5 MG/0.5 ML SYRINGE IVP PRN ×3 (11:59→12:23)
[2020-07-27] MEDS ORDERED: PROMETHAZINE INJ 25 MG/ML 1 ML VIAL IVPB ONE (12:05)
--- NOTE | 2020-07-27 12:08 | P.OP ---
Date of Procedure: 07/27/20 Preoperative Diagnosis: Internal derangement left knee Postoperative Diagnosis: 1. ACL tear left knee 2. Lateral meniscal tear left knee 3. Grade 2 chondromalacia patella left knee 4. Reactive synovitis medial, lateral and suprapatellar compartments left knee Procedure(s) Performed: 1. Arthroscopic allograft ACL reconstruction left knee 2. Arthroscopic partial lateral meniscectomy left knee 3. Arthroscopic chondroplasty patella left knee 4. Arthroscopic partial synovectomy medial, lateral and suprapatellar compartments left knee Implants: 2Arthrex Endobuttons Anesthesia: GETA, regional (Adductor canal block), local Surgeon: Enrique Barr Respiratory Equipment Assistant #1: Norm Ramsey Estimated Blood Loss (ml): 15 Pathology: none sent Condition: stable Disposition: PACU Indications for Procedure: 35-year-old patient seen with progressive left knee pain and instability. After having treatment options discussed, she elected to proceed with arthroscopy to include allograft ACL reconstruction. Operative Findings: See description of procedure Description of Procedure: Patient was taken to the operative suite after having an adductor canal block performed by the department of anesthesia for postoperative pain control. Patient underwent a general anesthetic by the department of anesthesia. Patient was given preoperative antibiotics. The left lower extremity was placed in a well-padded arthroscopic leg ruth. The left leg was prepped and draped in the normal sterile orthopedic fashion. A lateral parapatellar and suprapatellar incision was made. Trochars were inserted. Arthroscopy was initiated. Suprapatellar pouch revealed diffuse thick reactive synovitis. The patellofemoral joint appeared to articulate congruently. There was grade 2 chondromalacia of the patella with some osteochondral tears present. The scope was guided into the medial gutter. No loose bodies or plica were identified The scope was then guided into the medial compartment. A medial parapatellar incision was made. Trocar inserted followed by probe. There was thick reactive synovitis anteriorly. The meniscus was probed and found to be stable. There was no chondromalacia present. Scope and probe were then guided into the intercondylar notch. There was an obvious ACL tear. After probing the area and it was completely torn. The PCL appeared stable. I now had Abel SANTACRUZ open up an allograft and prepared for implantation. I now guided the scope back into the medial compartment. I introduced a motorized shaver and performed a partial synovectomy decompressing thick reactive synovitis. The shaver was removed. There was good decompression of the synovitis. The scope and probe were then guided into lateral compartment. There was an small radial tear involving the anterior horn lateral meniscus. There was thick reactive some-itis that area. The remainder of the meniscus was found to be stable. There was no significant chondromalacia present. I performed a partial lateral meniscectomy. I performed a partial synovectomy decompressing reactive synovitis. The residual meniscus was stable. There was good decompression of the synovitis. I guided the scope back into the intercondylar notch. I debrided the remnant of the ACL. I performed a notchplasty. The PCL was stable. With the assistance of Abel SANTACRUZ created a femoral tunnel and I passed the suture line. With this assessment Abel SANTACRUZ created a tibial tunnel and passed a suture length there as well. The graft was now brought into the operative field. We shuttled the femoral side into the femoral tunnel flipping the button and securing it. Graft was now shuttled into the femoral tunnel. We now shuttled the tibial side a graft into our tibial tunnel. We good positioning of the graft. We now took like into full extension and tension the graft. While Abel SANTACRUZ helped with retraction I cinched down and lock the tibial side with a Arthrex Endobutton/suture length. I oversewed the area and it was secure. Residual suture limbs were clipped. We now tension the femoral side one more time and cut the residual suture. The scope was now reinserted into the joint. We had excellent positioning of the graft. There was good intraoperative stability of the knee. The scope was guided back into the medial lateral compartments noting no residual debris there. The scope was in guided back into the suprapatellar compartment. I guided the scope into the super patellar compartment. I did encounter some debris there. Motorize shaver was introduced and that was evacuated. I now performed a chondroplasty of the patella. We got down to good stable patellar osteochondral tissue. I now performed a partial synovectomy decompressing reactive synovitis. There appeared be good decompression of the synovitis. There was good stability of the residual osteochondral surface of the patella. I took one more look on the entire knee, no residual debris. Instruments were now removed from the joint. The joint was infiltrated with .25% Marcaine. The mini medial incision and portal sites were all repair with nylon suture. Sterile dressings were applied. The patient was placed into a AHSAN hose. The extremity placed into a knee immobilizer. No tourniquet was utilized. The patient was awakened, transferred to a bed and taken to recovery stable satisfactory condition.
[2020-07-27 13:05] VITALS: RESP 18
[2020-07-27] MEDS ORDERED: HYDROcodone/APAP 7.5-325MG 1 EACH TAB ONE (13:18)
[2020-07-27] MEDS ORDERED: HYDROcodone/APAP 7.5-325MG 1 EACH TAB PO ONE (13:20)
[2020-07-27 14:02] VITALS: BP 113/64; PULSE 62
--- NOTE | 2020-07-31 07:45 | CDI ---
Date: 07.31.2020 CDS/Roller Engraver Name: Eliana Willis Phone: If any questions, call Argenis Isabel Brick Kiln Worker at [phone] Patient Name: Candi Tijerina Admit Date 07.27.20 Discharge Date: 07.27.20 ATTENTION: The [facility] Coding Staff appreciate your assistance in clarifying documentation. Please respond to the clarification below the line at the bottom and electronically sign. The [facility] Coding staff will review the response and follow-up if needed. Please note: Queries are made part of the Legal Health Record. If you have any questions, please contact the Brick Kiln Worker. Dear Dr. Barr In order to code to the greatest specificity and for the greatest reimbursement I need the following information: Your pt came in to have ACL reconstruction and meniscectomy. Please clarify whether this was due to trauma or Old derangement of the knee. Thank you for your kind consideration. Trauma MTDD
== END 2020-07-27 14:44 | disposition home or self-care (01) ==
LOC: OR 08:48
PROVIDERS: ATTEND Orthopaedic Surgery
DX: S83.512A Sprain of anterior cruciate ligament of left knee, initial encounter (principal); S83.282A Other tear of lateral meniscus, current injury, left knee, initial encounter; M22.42 Chondromalacia patellae, left knee; M65.862 Other synovitis and tenosynovitis, left lower leg; I10 Essential (primary) hypertension; J45.909 Unspecified asthma, uncomplicated; F17.210 Nicotine dependence, cigarettes, uncomplicated; M17.12 Unilateral primary osteoarthritis, left knee; E66.01 Morbid (severe) obesity due to excess calories; Z90.49 Acquired absence of other specified parts of digestive tract; Z98.890 Other specified postprocedural states; Z79.1 Long term (current) use of non-steroidal anti-inflammatories (NSAID); Z79.899 Other long term (current) drug therapy; Z68.41 Body mass index [BMI] 40.0-44.9, adult; Z91.89 Other specified personal risk factors, not elsewhere classified; Z88.1 Allergy status to other antibiotic agents; X58.XXXA Exposure to other specified factors, initial encounter
CPT/HCPCS: 29888; 29881; 64447; 64450; 81025; 76942; C1713 ×3; C1762; J2250; J1200; J1100; J2550; J2405; J0690; J2001; J3010; J1170 ×2; J2795; J1885; J2704; 64415

== ENCOUNTER → 2021-04-06 | Outpatient (CLI) | payer OTHER ==
--- NOTE | 2021-04-07 04:35 | MR ---
EXAMINATION TYPE: MR knee LT wo con DATE OF EXAM: 04/06/2021 COMPARISON: None HISTORY: Left front inner knee pain and swelling for 1 month. Multiplanar multiecho imaging of the left knee was performed with no contrast. There is reconstructive surgery noted of the anterior cruciate ligament which appears intact. The pos terior cruciate ligament is intact. There is mild knee joint effusion. Lateral meniscus is intact. Th ere is some increased signal within the posterior horn of the medial meniscus without extension to th e articular surface. The patella is intact. Patella tendon is intact. The collateral ligaments are intact. IMPRESSION: Ligament reconstructive surgery. Small intrasubstance tear posterior horn of the medial meniscus. Kne e joint effusion. No fracture seen.
== END ==
LOC: RADMRIMAIN 20:15
PROVIDERS: ATTEND Orthopaedic Surgery
DX: M25.462 Effusion, left knee (principal); S83.242A Other tear of medial meniscus, current injury, left knee, initial encounter; X58.XXXA Exposure to other specified factors, initial encounter; Z98.890 Other specified postprocedural states

== ENCOUNTER 2021-07-21 08:11 | Observation (INO) | payer OTHER ==
[2021-07-21] MEDS ORDERED: SODIUM CHLORIDE 0.9% 1,000 ML IV STA (08:40)
[2021-07-21] MEDS ORDERED: ONDANSETRON 4 MG/2 ML VIAL IVP STA (08:40)
[2021-07-21] MEDS ORDERED: HYDROmorphone 0.5 MG/0.5 ML SYRINGE IVP STA (08:40)
[2021-07-21] MEDS ORDERED: KETOROLAC 15 MG/ML 1 ML VIAL IVP STA (08:40)
[2021-07-21 08:48] LABS: Appearance,Urine Clear (Clear); Bilirubin,Urine Negative (Negative); Blood,Urine Negative (Negative); Color,Urine Light Yellow; Glucose,Urine (UA) Negative (Negative); Ketones,Urine Negative (Negative); Leukocyte Esterase,Urine Negative (Negative); Nitrite,Urine Negative (Negative); Protein,Urine Negative (Negative); Specific Gravity,Urine 1.012 (1.001-1.035); Urobilinogen,Urine <2.0 mg/dL (<2.0)
--- NOTE | 2021-07-21 08:53 | ED ---
Abdominal Pain HPI - General Chief Complaint: Abdominal Pain Stated Complaint: Abdominal Pain Time Seen by Provider: 07/21/21 08:27 Source: patient, RN notes reviewed Mode of arrival: ambulatory Limitations: no limitations - History of Present Illness Initial Comments: This a 36-year-old female presents emergency Department chief complaint of abdominal pain. Patient states it woke her up around midnight she states that she's had pain that is waxing and waning ever sent. She initially thought it was just related to gas she states she attempted take some simethicone, Bentyl, she attempted to have bowel movement which she did with no relief of symptoms. She does have a history of IBS and initially just thought this was gas type pain. Patient states is not improving seems to be worsening and is now located in the right lower quadrant. Patient states had prior cholecystectomy denies any chance as she states has a vasectomy. She has no dysuria no hematuria denies any flank pain - Related Data Home Medications Medication Instructions Recorded Confirmed L.acidoph,Paracasei, B.lactis 1 cap PO DAILY 07/24/20 07/21/21 [Probiotic] Magnesium Oxide [Sagastume] 500 mg PO DAILY 07/24/20 07/21/21 Potassium Gluconate [Potassium 99 mg PO DAILY 07/24/20 07/21/21 Gluconate ER] Vitamin B Complex 1 cap PO DAILY 07/24/20 07/21/21 Calcium Carbonate [Calcium] 600 mg PO DAILY 07/21/21 07/21/21 Cetirizine HCl [Zyrtec] 10 mg PO DAILY 07/21/21 07/21/21 Cholecalciferol [Vitamin D3 (25 100 mcg PO DAILY 07/21/21 07/21/21 Mcg = 1000 Iu)] FLUoxetine HCL [PROzac] 20 mg PO DAILY 07/21/21 07/21/21 Famotidine [Zantac-360 10 mg PO DAILY PRN 07/21/21 07/21/21 (Famotidine)] Ibuprofen [Motrin] 600 mg PO Q8H PRN 07/21/21 07/21/21 Montelukast [Singulair] 10 mg PO DAILY 07/21/21 07/21/21 Simethicone Chew [Mylicon Chew] 80 mg PO QID PRN 07/21/21 07/21/21 Ubidecarenone [Co Q-10] 100 mg PO DAILY 07/21/21 07/21/21 Allergies Allergy/AdvReac Type Severity Reaction Status Date / Time Tetracyclines AdvReac Nausea & Verified 07/21/21 09:28 Vomiting & Diarrhea Review of Systems ROS Statement: Those systems with pertinent positive or pertinent negative responses have been documented in the HPI. ROS Other: All systems not noted in ROS Statement are negative. Past Medical History Past Medical History: Asthma, Hypertension, Thyroid Disorder Additional Past Medical History / Comment(s): migraines, palpitaions, IBS, arthritis, hx hypothyroid-no rx currently, chronic edwar kelly virus, immune hypoglobulinemia, History of Any Multi-Drug Resistant Organisms: None Reported Past Surgical History: Cholecystectomy, Orthopedic Surgery Additional Past Surgical History / Comment(s): right knee arthroscopy, L acl reconstruction Past Anesthesia/Blood Transfusion Reactions: Family History of Problems w/ Anesthesia, Motion Sickness, Postoperative Nausea & Vomiting (PONV) Additional Past Anesthesia/Blood Transfusion Reaction / Comment(s): father- oxygen level dropped and lost since of smell and taste Past Psychological History: Anxiety, Depression Smoking Status: Former smoker Past Alcohol Use History: Occasional Past Drug Use History: Marijuana - Past Family History Mother Family Medical History: No Reported History General Exam Limitations: no limitations General appearance: alert, in no apparent distress Head exam: Present: atraumatic, normocephalic, normal inspection Eye exam: Present: normal appearance, PERRL, EOMI. Absent: scleral icterus, conjunctival injection, periorbital swelling Neck exam: Present: normal inspection, full ROM. Absent: tenderness, meni ngismus, lymphadenopathy Respiratory exam: Present: normal lung sounds bilaterally. Absent: respiratory distress, wheezes, rales, rhonchi, stridor Cardiovascular Exam: Present: regular rate, normal rhythm, normal heart sounds. Absent: systolic murmur, diastolic murmur, rubs, gallop, clicks GI/Abdominal exam: Present: soft, tenderness (moderate right lower quadrant), normal bowel sounds. Absent: distended, guarding, rebound, rigid Back exam: Absent: CVA tenderness (R), CVA tenderness (L) Neurological exam: Present: alert Skin exam: Present: warm, dry, intact, normal color. Absent: rash Course Vital Signs 07/21/21 07/21/21 08:21 10:11 Temperature 97.4 F L 97.1 F L Pulse Rate 90 80 Respiratory 18 18 Rate Blood Pressure 138/87 124/77 O2 Sat by Pulse 98 98 Oximetry Medical Decision Making - Medical Decision Making CT shows evidence of early acute appendicitis. Patient's case discussed Dr. Messina will be admitted for surgery, started on antibiotics. - Lab Data Result diagrams: 07/21/21 08:47 07/21/21 08:47 Lab Results 07/21/21 07/21/21 07/21/21 Range/Units 08:32 08:32 08:47 WBC 14.9 H (3.8-10.6) k/uL RBC 4.73 (3.80-5.40) m/uL Hgb 14.4 (11.4-16.0) gm/dL Hct 43.7 (34.0-46.0) % MCV 92.5 (80.0-100.0) fL MCH 30.5 (25.0-35.0) pg MCHC 32.9 (31.0-37.0) g/dL RDW 12.1 (11.5-15.5) % Plt Count 204 (150-450) k/uL MPV 7.5 Neutrophils % 85 % Lymphocytes % 10 % Monocytes % 3 % Eosinophils % 1 % Basophils % 0 % Neutrophils # 12.7 H (1.3-7.7) k/uL Lymphocytes # 1.4 (1.0-4.8) k/uL Monocytes # 0.5 (0-1.0) k/uL Eosinophils # 0.2 (0-0.7) k/uL Basophils # 0.0 (0-0.2) k/uL Sodium (137-145) mmol/L Potassium (3.5-5.1) mmol/L Chloride (98-107) mmol/L Carbon Dioxide (22-30) mmol/L Anion Gap mmol/L BUN (7-17) mg/dL Creatinine (0.52-1.04) mg/dL Est GFR (CKD-EPI)AfAm (>60 ml/min/1.73 sqM) Est GFR (CKD-EPI)NonAf (>60 ml/min/1.73 sqM) Glucose (74-99) mg/dL Plasma Lactic Acid Julio Cesar (0.7-2.0) mmol/L Calcium (8.4-10.2) mg/dL Total Bilirubin (0.2-1.3) mg/dL AST (14-36) U/L ALT (4-34) U/L Alkaline Phosphatase (38-126) U/L Total Protein (6.3-8.2) g/dL Albumin (3.5-5.0) g/dL Lipase (23-300) U/L Urine Color Light Yellow Urine Appearance Clear (Clear) Urine pH 5.0 (5.0-8.0) Ur Specific [place] 1.012 (1.001-1.035) Urine Protein Negative (Negative) Urine Glucose (UA) Negative (Negative) Urine Ketones Negative (Negative) Urine Blood Negative (Negative) Urine Nitrite Negative (Negative) Urine Bilirubin Negative (Negative) Urine Urobilinogen <2.0 (<2.0) mg/dL Ur Leukocyte Esterase Negative (Negative) Urine HCG, Qual Not Detected (Not Detectd) 07/21/21 07/21/21 Range/Units 08:47 08:47 WBC (3.8-10.6) k/uL RBC (3.80-5.40) m/uL Hgb (11.4-16.0) gm/dL Hct (34.0-46.0) % MCV (80.0-100.0) fL MCH (25.0-35.0) pg MCHC (31.0-37.0) g/dL RDW (11.5-15.5) % Plt Count (150-450) k/uL MPV Neutrophils % % Lymphocytes % % Monocytes % % Eosinophils % % Basophils % % Neutrophils # (1.3-7.7) k/uL Lymphocytes # (1.0-4.8) k/uL Monocytes # (0-1.0) k/uL Eosinophils # (0-0.7) k/uL Basophils # (0-0.2) k/uL Sodium 137 (137-145) mmol/L Potassium 4.4 (3.5-5.1) mmol/L Chloride 105 (98-107) mmol/L Carbon Dioxide 19 L (22-30) mmol/L Anion Gap 13 mmol/L BUN 19 H (7-17) mg/dL Creatinine 0.62 (0.52-1.04) mg/dL Est GFR (CKD-EPI)AfAm >90 (>60 ml/min/1.73 sqM) Est GFR (CKD-EPI)NonAf >90 (>60 ml/min/1.73 sqM) Glucose 120 H (74-99) mg/dL Plasma Lactic Acid Julio Cesar 1.4 (0.7-2.0) mmol/L Calcium 9.6 (8.4-10.2) mg/dL Total Bilirubin 0.5 (0.2-1.3) mg/dL AST 23 (14-36) U/L ALT 18 (4-34) U/L Alkaline Phosphatase 74 (38-126) U/L Total Protein 7.8 (6.3-8.2) g/dL Albumin 5.0 (3.5-5.0) g/dL Lipase 59 (23-300) U/L Urine Color Urine Appearance (Clear) Urine pH (5.0-8.0) Ur Specific [place] (1.001-1.035) Urine Protein (Negative) Urine Glucose (UA) (Negative) Urine Ketones (Negative) Urine Blood (Negative) Urine Nitrite (Negative) Urine Bilirubin (Negative) Urine Urobilinogen (<2.0) mg/dL Ur Leukocyte Esterase (Negative) Urine HCG, Qual (Not Detectd) Disposition Clinical Impression: Acute appendicitis Disposition: ADMITTED IP TO THIS HOSP Condition: Fair Referrals: Sunitha Song MD [Primary Care Provider] - 1-2 days
[2021-07-21 08:59] LABS: Basophils % (A) 0 %; Eosinophils # (A) 0.2 k/uL (0-0.7); Eosinophils % (A) 1 %; HCT 43.7 % (34.0-46.0); HGB 14.4 gm/dL (11.4-16.0); Lymphocytes # (A) 1.4 k/uL (1.0-4.8); Lymphocytes % (A) 10 %; MCH 30.5 pg (25.0-35.0); MCHC 32.9 g/dL (31.0-37.0); MCV 92.5 fL (80.0-100.0); Mean Platelet Volume 7.5; Monocytes # (A) 0.5 k/uL (0-1.0); Monocytes % (A) 3 %; Neutrophils # (A) 12.7 k/uL (1.3-7.7); Neutrophils % (A) 85 %; Platelet Count 204 k/uL (150-450); RBC 4.73 m/uL (3.80-5.40); RDW 12.1 % (11.5-15.5); WBC 14.9 k/uL (3.8-10.6)
[2021-07-21 09:14] LABS: ALT 18 U/L (4-34); AST 23 U/L (14-36); African American GFR (CKD) >90 (>60 ml/min/1.73 sqM); Alkaline Phosphatase 74 U/L (38-126); Anion Gap 13 mmol/L; Blood Urea Nitrogen 19 mg/dL (7-17); Calcium 9.6 mg/dL (8.4-10.2); Carbon Dioxide 19 mmol/L (22-30); Chloride 105 mmol/L (98-107); Glucose 120 mg/dL (74-99); Lipase 59 U/L (23-300); Non-African American GFR(CKD) >90 (>60 ml/min/1.73 sqM); Potassium 4.4 mmol/L (3.5-5.1); Sodium 137 mmol/L (137-145); Total Bilirubin 0.5 mg/dL (0.2-1.3); Total Protein 7.8 g/dL (6.3-8.2)
--- NOTE | 2021-07-21 09:34 | CT ---
EXAMINATION TYPE: CT abdomen pelvis w con DATE OF EXAM: 07/21/2021 COMPARISON: None HISTORY: epigastric to rlq pain CT DLP: 2009.9 mGycm CONTRAST: CT scan of the abdomen and pelvis is performed without Oral Contrast and with IV Contrast, patient in jected with 100 mL of Isovue 300. FINDINGS: LUNG BASES-: No visible nodule. No infiltrate. LIVER/GB: Cholecystectomy clips noted. No space occupying hepatic lesion. Biliary tree is of normal c aliber. PANCREAS: No inflammation. No distinct mass. SPLEEN: No splenic enlargement. No lesion seen. ADRENALS: No nodule. No thickening. KIDNEYS/BLADDER: No hydronephrosis. No nephrolithiasis. No distinct renal mass. Urinary bladder g rossly unremarkable. BOWEL: There are 2 appendicoliths within the appendix measuring 1.6 cm proximally and distally measur ing approximately 5 mm. The appendix is dilated at 1.3 cm. No definite surrounding inflammatory celis e appreciated. Normal bowel caliber. No inflammation. GENITAL ORGANS: No gross abnormality. LYMPH NODES: No greater than 1cm abdominal or pelvic lymph nodes are appreciated. AORTA: No significant abnormality. OSSEOUS STRUCTURES: No significant abnormality is seen. OTHER: No significant additional abnormality is seen. IMPRESSION: 1. Appendicoliths noted with dilatation of the appendix. No surrounding inflammatory change appreciat ed. Changes of early acute appendicitis difficult to exclude. Correlate clinically.
[2021-07-21] MEDS ORDERED: PIPERACILLIN-TAZOBACTAM 3.375 GM in SODIUM CHLORIDE 0.9% 100 ML IVPB STA (10:09)
[2021-07-21] MEDS ORDERED: ONDANSETRON 4 MG/2 ML VIAL IVP PRN (10:27)
[2021-07-21] MEDS ORDERED: NALOXONE 0.4 MG/ML 1 ML VIAL IV PRN (10:27)
[2021-07-21] MEDS ORDERED: HYDROmorphone 0.5 MG/0.5 ML SYRINGE IVP PRN (10:27)
[2021-07-21] MEDS: HYDROmorphone 1 MG/ML 1 ML SYRINGE IVP PRN ×2 (15:46→21:52)
[2021-07-21] MEDS: SODIUM CHLORIDE 0.9% 1,000 ML IV SCH ×2 (16:00→23:49)
[2021-07-21] MEDS: PIPERACILLIN-TAZOBACTAM 3.375 GM in SODIUM CHLORIDE 0.9% 100 ML IVPB SCH ×2 (16:05→23:49)
[2021-07-21] MEDS ORDERED: SCOPOLAMINE HYDROBROMIDE ONE (17:52)
[2021-07-21] MEDS ORDERED: ONDANSETRON 4 MG/2 ML VIAL ONE (17:52)
[2021-07-21] MEDS ORDERED: LIDOCAINE 1% INJ 10MG/ML (20 ML MDV) ONE (17:52)
[2021-07-21] MEDS ORDERED: SCOPOLAMINE 1.5MG/72HR PATCH TRANSDERM ONE (17:52)
[2021-07-21] MEDS ORDERED: PROPOFOL 10 MG/ML 20 ML VIAL IV ONE (17:52)
[2021-07-21] MEDS ORDERED: LACTATED RINGERS 1,000 ML IV ONE (17:52)
[2021-07-21] MEDS ORDERED: fentaNYL (PF) 50 MCG/ML 2 ML AMP ONE (17:52)
[2021-07-21] MEDS ORDERED: ROCURONIUM 10 MG/ML (5 ML VIAL) IV ONE (17:52)
[2021-07-21] MEDS ORDERED: GLYCOPYRROLATE 0.2 MG/ML 2 ML VIAL ONE (17:52)
[2021-07-21] MEDS ORDERED: DEXAMETHASONE SOD PHOSPHATE 10 MG/ML 1 ML VIAL ONE (17:52)
[2021-07-21] MEDS ORDERED: NEOSTIGMINE 1 MG/ML 10 ML VIAL ONE (17:52)
[2021-07-21] MEDS ORDERED: SUCCINYLCHOLINE CHLORIDE 100 MG/5 ML SYR IV ONE (17:52)
[2021-07-21] MEDS ORDERED: MIDAZOLAM 2 MG/2 ML VIAL ONE (17:52)
--- NOTE | 2021-07-21 17:53 | P.GSHP ---
History of Present Illness H&P Date: 07/21/21 Chief Complaint: Right lower quadrant abdominal pain 36-year-old female comes in the hospital complaining of severe right lower quadrant pain. Patient states it started last night and has been increasing in severity. She says over the last few weeks she has had intermittent vomiting and some nausea at times. Seems to be aggravated the day after she has had some alcoholic beverages. Previous cholecystectomy. Says the pain does feel somewhat like pain from ovulation however much more severe. White blood cell count is elevated. CAT scan was reviewed. CAT scan shows an appendicolith and mild inflammatory changes around the appendix. Mild thickening of the right colon and hepatic flexure also noted. Patient has chronic loose stools. Not too much different than normal. No rectal bleeding or mucus noted. No sick contacts. - Review of Systems Comment: The patient denies any acute changes in vision or hearing, no dysphagia or odynophagia, no chest pain or shortness of breath, no dysuria or hematuria, no headache, no runny nose, no rectal bleeding or melena, no unexplained weight loss , no fevers Past Medical History Past Medical History: Asthma, Hypertension, Thyroid Disorder Additional Past Medical History / Comment(s): migraines, palpitaions, IBS, arthritis, hx hypothyroid-no rx currently, chronic edwar kelly virus, immune hypoglobulinemia, History of Any Multi-Drug Resistant Organisms: None Reported Past Surgical History: Cholecystectomy, Orthopedic Surgery Additional Past Surgical History / Comment(s): right knee arthroscopy, L acl reconstruction, L knee arthroscopy Past Anesthesia/Blood Transfusion Reactions: Family History of Problems w/ Anesthesia, Motion Sickness, Postoperative Nausea & Vomiting (PONV) Additional Past Anesthesia/Blood Transfusion Reaction / Comment(s): father- oxygen level dropped and lost since of smell and taste Past Psychological History: Anxiety, Depression Smoking Status: Former smoker Past Alcohol Use History: Occasional Past Drug Use History: Marijuana - Past Family History Mother Family Medical History: AFIB Father Family Medical History: Diabetes Mellitus, Hyperlipidemia, Hypertension Medications and Allergies Home Medications Medication Instructions Recorded Confirmed Type L.acidoph,Paracasei, B.lactis 1 cap PO DAILY 07/24/20 07/21/21 History [Probiotic] Magnesium Oxide [Sagastume] 500 mg PO DAILY 07/24/20 07/21/21 History Potassium Gluconate [Potassium 99 mg PO DAILY 07/24/20 07/21/21 History Gluconate ER] Vitamin B Complex 1 cap PO DAILY 07/24/20 07/21/21 History Calcium Carbonate [Calcium] 600 mg PO DAILY 07/21/21 07/21/21 History Cetirizine HCl [Zyrtec] 10 mg PO DAILY 07/21/21 07/21/21 History Cholecalciferol [Vitamin D3 (25 100 mcg PO DAILY 07/21/21 07/21/21 History Mcg = 1000 Iu)] FLUoxetine HCL [PROzac] 20 mg PO DAILY 07/21/21 07/21/21 History Famotidine [Zantac-360 10 mg PO DAILY PRN 07/21/21 07/21/21 History (Famotidine)] Ibuprofen [Motrin] 600 mg PO Q8H PRN 07/21/21 07/21/21 History Montelukast [Singulair] 10 mg PO DAILY 07/21/21 07/21/21 History Simethicone Chew [Mylicon Chew] 80 mg PO QID PRN 07/21/21 07/21/21 History Ubidecarenone [Co Q-10] 100 mg PO DAILY 07/21/21 07/21/21 History Allergies Allergy/AdvReac Type Severity Reaction Status Date / Time Tetracyclines AdvReac Nausea & Verified 07/21/21 16:23 Vomiting & Diarrhea Surgical - Exam Vital Signs Temp Pulse Resp BP Pulse Ox 97.4 F L 90 18 138/87 98 07/21/21 08:21 07/21/21 08:21 07/21/21 08:21 07/21/21 08:21 07/21/21 08:21 Physical exam: General: Well-developed, well-nourished HEENT: Normocephalic, sclerae nonicteric Abdomen: Right lower quadrant tenderness, nondistended Extremities: No edema Neuro: Alert and oriented Results - Labs 07/21/21 08:47 07/21/21 08:47 Abnormal Lab Results - Last 24 Hours (Table) 07/21/21 07/21/21 Range/Units 08:47 08:47 WBC 14.9 H (3.8-10.6) k/uL Neutrophils # 12.7 H (1.3-7.7) k/uL Carbon Dioxide 19 L (22-30) mmol/L BUN 19 H (7-17) mg/dL Glucose 120 H (74-99) mg/dL Diabetes panel 07/21/21 Range/Units 08:47 Sodium 137 (137-145) mmol/L Potassium 4.4 (3.5-5.1) mmol/L Chloride 105 (98-107) mmol/L Carbon Dioxide 19 L (22-30) mmol/L BUN 19 H (7-17) mg/dL Creatinine 0.62 (0.52-1.04) mg/dL Glucose 120 H (74-99) mg/dL Calcium 9.6 (8.4-10.2) mg/dL AST 23 (14-36) U/L ALT 18 (4-34) U/L Alkaline Phosphatase 74 (38-126) U/L Total Protein 7.8 (6.3-8.2) g/dL Albumin 5.0 (3.5-5.0) g/dL Calcium panel 07/21/21 Range/Units 08:47 Calcium 9.6 (8.4-10.2) mg/dL Albumin 5.0 (3.5-5.0) g/dL Pituitary panel 07/21/21 Range/Units 08:47 Sodium 137 (137-145) mmol/L Potassium 4.4 (3.5-5.1) mmol/L Chloride 105 (98-107) mmol/L Carbon Dioxide 19 L (22-30) mmol/L BUN 19 H (7-17) mg/dL Creatinine 0.62 (0.52-1.04) mg/dL Glucose 120 H (74-99) mg/dL Calcium 9.6 (8.4-10.2) mg/dL Adrenal panel 07/21/21 Range/Units 08:47 Sodium 137 (137-145) mmol/L Potassium 4.4 (3.5-5.1) mmol/L Chloride 105 (98-107) mmol/L Carbon Dioxide 19 L (22-30) mmol/L BUN 19 H (7-17) mg/dL Creatinine 0.62 (0.52-1.04) mg/dL Glucose 120 H (74-99) mg/dL Calcium 9.6 (8.4-10.2) mg/dL Total Bilirubin 0.5 (0.2-1.3) mg/dL AST 23 (14-36) U/L ALT 18 (4-34) U/L Alkaline Phosphatase 74 (38-126) U/L Total Protein 7.8 (6.3-8.2) g/dL Albumin 5.0 (3.5-5.0) g/dL Assessment and Plan (1) Acute appendicitis Narrative/Plan: Will proceed with laparoscopic, possible open appendectomy at this time. Risks of bleeding, infection, conversion to an open procedure, possible findings of something other than appendicitis, bladder bowel and ureteral injury, hernia. She understands wished to proceed. Current Visit: Yes Status: Acute Code(s): K35.80 - UNSPECIFIED ACUTE APPENDICITIS SNOMED Code(s): 79783882
[2021-07-21] MEDS ORDERED: LIDOCAINE 1%-EPI 1:100,000 20 ML VIAL SQ ONE (18:24)
[2021-07-21] MEDS ORDERED: diphenhydrAMINE 50 MG/ML 1 ML VIAL ONE (18:48)
[2021-07-21] MEDS ORDERED: HYDROmorphone 1 MG/ML 1 ML SYRINGE IVP PRN (18:50)
[2021-07-21] MEDS ORDERED: ACETAMINOPHEN TAB 325 MG TAB PO PRN (18:50)
--- NOTE | 2021-07-21 18:53 | P.OP ---
Date of Procedure: 07/21/21 Procedure(s) Performed: PREOPERATIVE DIAGNOSIS: Acute appendicitis POSTOPERATIVE DIAGNOSIS: Gangrenous appendicitis without perforation or abscess PROCEDURE: Laparoscopic appendectomy SURGEON: Mayuri EBL: 5 mL ANESTHESIA: General COMPLICATIONS: None OPERATIVE PROCEDURE: The patient was brought and placed on the operating table in the supine position. The patient was placed under general anesthesia. The abdomen was prepped and draped in the usual sterile fashion. A small vertical infraumbilical incision was made. The fascia was retracted anteriorly with Warren forceps. The Veress needle was advanced into the peritoneal cavity. The saline drop test was normal. Insufflation took place to 15 mmHg. A 5 mm trocar was then placed. An additional 5 mm suprapubic trocar was placed under direct visualization as well as a 12 mm left lower quadrant trocar under direct visualization. The appendix was inspected. It was acutely inflamed. There was a small amount of purulence around the appendix and also in the pelvis. There was no evidence of perforation however the appendix appeared somewhat laney grenous. It was very distended. The mesoappendix was dissected. The base of the appendix was divided using a linear 45 mm intestinal stapler. The mesentery itself was divided using both the LigaSure and a single 12 no matter clip. The area was then irrigated. No further purulence or bleeding was seen. The appendix was brought out of the peritoneal cavity through the left lower quadrant trocar site with an Endo Catch bag. The fascia at the 12 mm site was closed using a Олег-Yoon 0 Vicryl stitch. The skin at all 3 sites was closed using 4-0 Monocryl sutures. Skin glue was then applied. DISPOSITION: Stable to recovery room
[2021-07-21] MEDS ORDERED: diphenhydrAMINE 50 MG/ML 1 ML VIAL IVP ONE (18:54)
[2021-07-21] MEDS ORDERED: HYDROmorphone 0.5 MG/0.5 ML SYRINGE IVP ONE (18:59)
[2021-07-21] MEDS ORDERED: KETOROLAC 15 MG/ML 1 ML VIAL ONE (19:10)
[2021-07-21] MEDS: KETOROLAC 15 MG/ML 1 ML VIAL IVP SCH ×2 (19:13→23:49)
[2021-07-21] MEDS ORDERED: PROMETHAZINE INJ 25 MG/ML 1 ML VIAL IVPB ONE (19:15)
[2021-07-21] MEDS: DOCUSATE 100 MG CAP PO SCH (21:53)
[2021-07-21] MEDS: HEPARIN SODIUM,PORCINE/PF 5,000 UNIT/0.5 ML SYRINGE SQ SCH (23:49)
[2021-07-21] MEDS: HYDROcodone/APAP 5-325MG 1 EACH TAB PO PRN (23:50)
[2021-07-22] MEDS: HYDROcodone/APAP 5-325MG 1 EACH TAB PO PRN ×2 (03:53→09:07)
[2021-07-22] MEDS: KETOROLAC 15 MG/ML 1 ML VIAL IVP SCH (06:05)
[2021-07-22] MEDS: HEPARIN SODIUM,PORCINE/PF 5,000 UNIT/0.5 ML SYRINGE SQ SCH (08:48)
[2021-07-22] MEDS: DOCUSATE 100 MG CAP PO SCH (08:48)
[2021-07-22] MEDS: PIPERACILLIN-TAZOBACTAM 3.375 GM in SODIUM CHLORIDE 0.9% 100 ML IVPB SCH (08:49)
[2021-07-22] MEDS ORDERED: PANTOPRAZOLE 40 MG/10 ML VIAL IV SCH (09:00)
[2021-07-22 09:17] VITALS: BP 116/76; PULSE 90; RESP 20; TEMP 97.7
--- NOTE | 2021-07-22 10:06 | P.DS ---
Providers Date of admission: 07/21/21 10:52 Expected date of discharge: 07/22/21 Attending physician: Israel Messina Primary care physician: Sunitha Song - Discharge Diagnosis(es) (1) Acute appendicitis The patient was admitted with acute appendicitis. Underwent laparoscopic appendectomy yesterday. Patient doing well today. Would like to go home. We'll discharge. Plan outpatient Levaquin 5 days and prescription for [place]. Follow-up one week. Current Visit: Yes Status: Acute Patient Condition at Discharge: Fair Plan - Discharge Summary Discharge Rx Participant: No New Discharge Prescriptions: No Action Vitamin B Complex 1 cap PO DAILY L.acidoph,Paracasei, B.lactis [Probiotic] 1 cap PO DAILY Potassium Gluconate [Potassium Gluconate ER] 99 mg PO DAILY Magnesium Oxide [Sagastume] 500 mg PO DAILY Ibuprofen [Motrin] 600 mg PO Q8H PRN PRN Reason: Pain Famotidine [Zantac-360 (Famotidine)] 10 mg PO DAILY PRN PRN Reason: Heartburn Cholecalciferol [Vitamin D3 (25 Mcg = 1000 Iu)] 100 mcg PO DAILY FLUoxetine HCL [PROzac] 20 mg PO DAILY Cetirizine HCl [Zyrtec] 10 mg PO DAILY Ubidecarenone [Co Q-10] 100 mg PO DAILY Simethicone Chew [Mylicon Chew] 80 mg PO QID PRN PRN Reason: Indigestion Calcium Carbonate [Calcium] 600 mg PO DAILY Montelukast [Singulair] 10 mg PO DAILY Discharge Medication List L.acidoph,Paracasei, B.lactis [Probiotic] 1 cap PO DAILY 07/24/20 [History] Magnesium Oxide [Sagastume] 500 mg PO DAILY 07/24/20 [History] Potassium Gluconate [Potassium Gluconate ER] 99 mg PO DAILY 07/24/20 [History] Vitamin B Complex 1 cap PO DAILY 07/24/20 [History] Calcium Carbonate [Calcium] 600 mg PO DAILY 07/21/21 [History] Cetirizine HCl [Zyrtec] 10 mg PO DAILY 07/21/21 [History] Cholecalciferol [Vitamin D3 (25 Mcg = 1000 Iu)] 100 mcg PO DAILY 07/21/21 [History] FLUoxetine HCL [PROzac] 20 mg PO DAILY 07/21/21 [History] Famotidine [Zantac-360 (Famotidine)] 10 mg PO DAILY PRN 07/21/21 [History] Ibuprofen [Motrin] 600 mg PO Q8H PRN 07/21/21 [History] Montelukast [Singulair] 10 mg PO DAILY 07/21/21 [History] Simethicone Chew [Mylicon Chew] 80 mg PO QID PRN 07/21/21 [History] Ubidecarenone [Co Q-10] 100 mg PO DAILY 07/21/21 [History] Follow up Appointment(s)/Referral(s): Sunitha Song MD [Primary Care Provider] - 1-2 days Patient Instructions/Handouts: Piperacillin/Tazobactam (By injection), Appendicitis (GEN), Laparoscopic Appendectomy (GEN)
== END 2021-07-22 12:28 | disposition home or self-care (01) ==
LOC: EC 08:11 → 6PED 10:52
PROVIDERS: ADMIT Surgery; ATTEND Surgery
DX: K35.891 Other acute appendicitis without perforation, with gangrene (principal); E03.9 Hypothyroidism, unspecified; I10 Essential (primary) hypertension; K58.9 Irritable bowel syndrome, unspecified; Z20.822 Contact with and (suspected) exposure to COVID-19; F32.9 Major depressive disorder, single episode, unspecified; F41.9 Anxiety disorder, unspecified; J45.909 Unspecified asthma, uncomplicated; D80.1 Nonfamilial hypogammaglobulinemia; B27.90 Infectious mononucleosis, unspecified without complication; M19.90 Unspecified osteoarthritis, unspecified site; Z79.899 Other long term (current) drug therapy; Z88.1 Allergy status to other antibiotic agents; Z87.891 Personal history of nicotine dependence; Z90.49 Acquired absence of other specified parts of digestive tract; Z86.69 Personal history of other diseases of the nervous system and sense organs; Z83.3 Family history of diabetes mellitus
CPT/HCPCS: 44970; 99285; 96376; 96374; 96375; 36415; 88304; 80053; 83605; 83690; 85025; 81003; 81025; 87635; 74177; G0378 ×2; J2543 ×2; J2250; J1200; J1100; J2550; J2710; J2405; J2001; J3010; J1170 ×2; J1885 ×2; J0330; J2704; C9113; Q9967; J1644 ×2; 96361; 96365; 96366; 99284

== ENCOUNTER → 2021-09-11 | Outpatient (CLI) | payer OTHER ==
[2021-09-11 12:59] VITALS: BP 110/78; PULSE 78; TEMP 98.1; BMI 42.9
[2021-09-11 14:56] LABS: HCT 42.1 % (34.0-46.0); HGB 13.9 gm/dL (11.4-16.0); MCH 30.3 pg (25.0-35.0); MCV 91.7 fL (80.0-100.0); Mean Platelet Volume 7.2; Platelet Count 247 k/uL (150-450); RBC 4.59 m/uL (3.80-5.40); RDW 12.2 % (11.5-15.5); WBC 8.8 k/uL (3.8-10.6)
--- NOTE | 2021-09-11 15:20 | P.HPBAR ---
Bariatric H&P - History & Physicial H&P Date: 09/11/21 History & Physicial: Visit/CC: initial clinic visit Patient initial contact: Initial weight: Initial weight in pounds: Height: 5 ft 5 in Initial BMI: Last weight: Current weight: 117.027 kg Current weight in pounds: 258.00 Current BMI: 42.9 [place] body weight (based on NIH guidelines): 56.699 kg Excess body weight loss: The patient is a 36 year-old F who presents for Bariatric Assessment. 36-year-old female known to our service. The patient underwent previous laparoscopic appendectomy. Patient with BMI 42. Patient is interested in sleeve gastrectomy. 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 Comorbidities include hypertension, asthma, chronic back pain, arthritis, reflux. Patient with history of chronic Buddy-Valero virus and hypo immunoglobulin anemia. Patient quit smoking 2 months ago. Patient says her reflux is mild and only takes Zantac soft a few times per week. No history of DVT or dysphagia. Review of Systems The patient denies any acute changes in vision or hearing, no dysphagia or odynophagia, no chest pain or shortness of breath, no dysuria or hematuria, no headache, no runny nose, no rectal bleeding or melena, no unexplained weight loss Past Medical History Past Medical History: Asthma, Hypertension, Thyroid Disorder Additional Past Medical History / Comment(s): migraines, palpitaions, IBS, arth ritis, hx hypothyroid-no rx currently, chronic buddy valero virus, immune hypoglobulinemia, History of Any Multi-Drug Resistant Organisms: None Reported Past Surgical History: Cholecystectomy, Orthopedic Surgery Additional Past Surgical History / Comment(s): right knee arthroscopy, L acl reconstruction, L knee arthroscopy Past Anesthesia/Blood Transfusion Reactions: Family History of Problems w/ A nesthesia, Motion Sickness, Postoperative Nausea & Vomiting (PONV) Additional Past Anesthesia/Blood Transfusion Reaction / Comm: father-oxygen level dropped and lost since of smell and taste Past Psychological History: Anxiety, Depression Smoking Status: Former smoker Past Alcohol Use History: Occasional Additional Past Alcohol Use History / Comment(s): smokes 1/2 PPD for 20 yrs Past Drug Use History: Marijuana - Past Family History Mother Family Medical History: AFIB Father Family Medical History: Diabetes Mellitus, Hyperlipidemia, Hypertension Surgical - Exam Vital Signs Temp Pulse BP 98.1 F 78 110/78 11/16/21 12:52 09/11/21 12:52 09/11/21 12:52 Physical exam: General: Well-developed, well-nourished HEENT: Normocephalic, sclerae nonicteric Abdomen: Nontender, nondistended Extremities: No edema Neuro: Alert and oriented Results - Labs 09/11/21 13:47 Bariatric Assessment & Plan (1) Morbid obesity with BMI of 40.0-44.9, adult Narrative/Plan: 36-year-old female with morbid obesity and associated comorbidities. Patient is interested in sleeve gastrectomy. Risks, benefits, and expected weight loss of sleeve gastrectomy and gastric bypass discussed in detail. The risks of bl eeding, infection, stenosis, stricture, leak, abscess, fistula formation, peritonitis, poor weight loss, reflux, vomiting, conversion to an open procedure, aborting sleeve gastrectomy, [place], PE, DVT, and were discussed. The patient understands and wishes to proceed. Patient will begin a 3 month to revise weight loss. Continue smoking cessation. Will require preoperative EGD this will be scheduled. Status: Acute Bariatric Checklist Checklist: Plan: Checklist: EGD: 1. Hiatal hernia: 2. H. Pylori: HgbA1c: Vitamin D: Smoking: Current every day smoker Primary care physician referral: Psychiatry clearance: Cardiology clearance: Sleep study: Diet journal: VTE risk score: VTE risk level: Rehab needs at discharge:
[2021-09-11 22:09] LABS: ALT 18 U/L (8-44); AST 17 U/L (13-35); African American GFR (CKD) 93.8 (60.0-200.0); Albumin 4.8 g/dL (3.8-4.9); Albumin/Globulin Ratio 2.04 (1.60-3.17); Alkaline Phosphatase 71 U/L (41-126); BUN/Creat Ratio 18.86 Ratio (12.00-20.00); Blood Urea Nitrogen 17.2 mg/dL (9.0-27.0); Calcium 9.8 mg/dL (8.7-10.3); Carbon Dioxide 21.9 mmol/L (21.6-31.8); Chloride 100 mmol/L (96-109); Globulin 2.3 g/dL (1.6-3.3); Glucose 89 mg/dL (70-110); Iron 129 ug/dL (50-170); Potassium 4.8 mmol/L (3.5-5.5); Sodium 137 mmol/L (135-145); Total Protein 7.1 g/dL (6.2-8.2)
[2021-09-12 00:08] LABS: Vitamin B12 >2000.0 pg/mL (200.0-944.0)
[2021-09-13 10:58] LABS: Anabasine Urine <2.0 ng/mL (<2.0)
== END | disposition home or self-care (01) ==
LOC: BARWHC3 12:23
PROVIDERS: ATTEND Surgery
DX: E66.01 Morbid (severe) obesity due to excess calories (principal); K90.89 Other intestinal malabsorption; E55.9 Vitamin D deficiency, unspecified; Z68.41 Body mass index [BMI] 40.0-44.9, adult
CPT/HCPCS: 80053; 80323; 82306; 82607; 82746; 83036; 83540; 84425; 85027; 93005; 99211

== ENCOUNTER 2021-11-06 07:38 | Day surgery (SDC) | payer OTHER ==
[2021-11-05 11:05] VITALS: BMI 44.6
[~2021-11-06 07:38] MED LIST changes: -DEXAMETHASONE SOD PHOSPHATE 10 MG/ML 1 ML VIAL IV ONE; +LIDOCAINE 1% (10MG/ML) FOR IV START INTRADERMA PRN
[2021-11-06 08:27] VITALS: RESP 16; TEMP 97.9
[2021-11-06] MEDS ORDERED: LIDOCAINE 1% INJ 10MG/ML (20 ML MDV) ONE (08:28)
[2021-11-06] MEDS ORDERED: PROPOFOL 10 MG/ML 20 ML VIAL IV ONE (08:28)
[2021-11-06] MEDS ORDERED: MIDAZOLAM 2 MG/2 ML VIAL ONE (08:28)
[2021-11-06] MEDS ORDERED: fentaNYL (PF) 50 MCG/ML 2 ML AMP ONE (08:28)
--- NOTE | 2021-11-06 08:33 | P.GSHP ---
History of Present Illness H&P Date: 11/06/21 Chief Complaint: GERD 36-year-old female here today for upper endoscopy. Patient is being evaluated for possible bariatric surgery. Mild reflux at times. No dysphagia. Past Medical History Past Medical History: Asthma, Hypertension, Osteoarthritis (OA), Thyroid Disorder Additional Past Medical History / Comment(s): migraines, IBS, arthritis, hx hypothyroid-no rx currently, chronic edwar kelly virus, immune hypoglobulinemia, History of Any Multi-Drug Resistant Organisms: None Reported Past Surgical History: Appendectomy, Cholecystectomy, Orthopedic Surgery Additional Past Surgical History / Comment(s): right knee arthroscopy, L acl reconstruction, L knee arthroscopy Past Anesthesia/Blood Transfusion Reactions: Previous Problems w/ Anesthesia, Family History of Problems w/ Anesthesia, Motion Sickness, Postoperative Nausea & Vomiting (PONV) Additional Past Anesthesia/Blood Transfusion Reaction / Comment(s): father- oxygen level dropped and lost since of smell and taste Smoking Status: Former smoker - Past Family History Mother Family Medical History: AFIB Father Family Medical History: Diabetes Mellitus, Hyperlipidemia, Hypertension Medications and Allergies Home Medications Medication Instructions Recorded Confirmed Type L.acidoph,Paracasei, B.lactis 1 cap PO DAILY 07/24/20 11/05/21 History [Probiotic] Magnesium Oxide [Sagastume] 500 mg PO DAILY 07/24/20 11/05/21 History Potassium Gluconate [Potassium 99 mg PO DAILY 07/24/20 11/05/21 History Gluconate ER] Vitamin B Complex 1 cap PO DAILY 07/24/20 11/05/21 History Calcium Carbonate [Calcium] 600 mg PO DAILY 07/21/21 11/05/21 History Cetirizine HCl [Zyrtec] 10 mg PO DAILY 07/21/21 11/05/21 History Cholecalciferol [Vitamin D3 (25 100 mcg PO DAILY 07/21/21 11/05/21 History Mcg = 1000 Iu)] FLUoxetine HCL [PROzac] 40 mg PO DAILY 07/21/21 11/05/21 History Famotidine [Zantac-360 10 mg PO DAILY PRN 07/21/21 11/05/21 History (Famotidine)] Ibuprofen [Motrin] 600 mg PO Q8H PRN 07/21/21 11/05/21 History Montelukast [Singulair] 10 mg PO DAILY 07/21/21 11/05/21 History Simethicone Chew [Mylicon Chew] 80 mg PO QID PRN 07/21/21 11/05/21 History Ubidecarenone [Co Q-10] 100 mg PO DAILY 07/21/21 11/05/21 History Zolpidem [Ambien] 5 mg PO HS PRN 11/05/21 11/05/21 History lisinopriL [Zestril] 10 mg PO DAILY 11/05/21 11/05/21 History Allergies Allergy/AdvReac Type Severity Reaction Status Date / Time Tetracyclines AdvReac Nausea & Verified 11/06/21 07:57 Vomiting & Diarrhea Surgical - Exam Vital Signs Temp Pulse Resp BP Pulse Ox 97.9 F 90 16 136/86 98 11/06/21 08:10 11/06/21 08:10 11/06/21 08:10 11/06/21 08:10 11/06/21 08:10 Physical exam: General: Well-developed, well-nourished HEENT: Normocephalic, sclerae nonicteric Abdomen: Nontender, nondistended Extremities: No edema Neuro: Alert and oriented Assessment and Plan (1) GERD (gastroesophageal reflux disease) Narrative/Plan: Will proceed with upper endoscopy at this time. Current Visit: Yes Status: Acute Code(s): K21.9 - GASTRO-ESOPHAGEAL REFLUX DISEASE WITHOUT ESOPHAGITIS SNOMED Code(s): 509215491
--- NOTE | 2021-11-06 08:40 | P.PCN ---
Date of Procedure: 11/06/21 Procedure(s) Performed: Preoperative Dx: GERD Postoperative Dx: Gastritis Procedure: EGD with Bx Anesthesia: Sedation Endoscopist: Dr. Messina Specimens: Antrum Endoscopic Procedure: The patient was on the endoscopy table in the left decubitus position. The Olympus gastroscope was inserted into the oropharynx and passed under direct visualization to the region of the third portion of the duodenum. From that point the scope was slowly withdrawn inspecting all surfaces carefully. There were no neoplastic inflammatory or polypoid lesions throughout the duodenum. The pylorus was widely patent. The stomach was carefully inspected. There was mild to moderate gastritis present. A biopsy of the antrum took place to rule out H. pylori. Retroflexion revealed a normal hiatus. The esophagus was then carefully examined. There were no neoplastic inflammatory or polypoid lesions throughout the visualized esophagus. The patient was then taken to the recovery room in stable condition per anesthesia guidelines. Recommendations: Await biopsy results. Begin antiacid therapy. Continue bariatric workup
[2021-11-06 09:13] VITALS: BP 137/80; PULSE 81
== END 2021-11-06 09:36 | disposition home or self-care (01) ==
LOC: ORWHC2ENDO 07:38
PROVIDERS: ATTEND Surgery
DX: K21.9 Gastro-esophageal reflux disease without esophagitis (principal); K31.9 Disease of stomach and duodenum, unspecified; K29.70 Gastritis, unspecified, without bleeding; J45.909 Unspecified asthma, uncomplicated; I10 Essential (primary) hypertension; M19.90 Unspecified osteoarthritis, unspecified site; E07.9 Disorder of thyroid, unspecified; K58.9 Irritable bowel syndrome, unspecified; G43.909 Migraine, unspecified, not intractable, without status migrainosus; B27.00 Gammaherpesviral mononucleosis without complication; D80.1 Nonfamilial hypogammaglobulinemia; F41.9 Anxiety disorder, unspecified; F32.A Depression, unspecified; Z90.49 Acquired absence of other specified parts of digestive tract; Z98.890 Other specified postprocedural states; Z87.891 Personal history of nicotine dependence; Z83.3 Family history of diabetes mellitus; Z83.438 Family history of other disorder of lipoprotein metabolism and other lipidemia; Z82.49 Family history of ischemic heart disease and other diseases of the circulatory system; Z79.899 Other long term (current) drug therapy; Z88.1 Allergy status to other antibiotic agents
CPT/HCPCS: 81025; 88305; 43239; J2250; J2001; J3010; J2704

== ENCOUNTER → 2021-12-31 | Outpatient (CLI) | payer OTHER ==
[2021-12-31 11:08] VITALS: BMI 45.1
== END | disposition home or self-care (01) ==
LOC: BARWHC3 08:52
PROVIDERS: ATTEND Surgery
DX: E66.01 Morbid (severe) obesity due to excess calories (principal); Z71.3 Dietary counseling and surveillance
CPT/HCPCS: 97804

== ENCOUNTER → 2022-01-15 | Outpatient (CLI) | payer OTHER ==
[2022-01-15 14:22] VITALS: BP 146/91; PULSE 91; TEMP 97.6; BMI 44.9
--- NOTE | 2022-01-15 15:02 | P.BASOAP ---
Subjective Progress Note Date: 01/15/22 Principal diagnosis: Morbid obesity Patient returns after recent EGD. EGD showed mild gastritis. Patient remains committed to sleeve gastrectomy. No new health issues. She may be starting a new antidepressant soon. Objective - Vital Signs Vital signs: Vital Signs Temp 97.6 F 01/15/22 14:19 Pulse 91 01/15/22 14:19 Resp BP 146/91 01/15/22 14:19 Pulse Ox Intake & Output 01/14/22 01/15/22 01/15/22 18:59 06:59 18:59 Weight 122.47 kg - Exam Abdomen: Soft, nontender, nondistended Assessment/Plan (1) Morbid obesity with BMI of 40.0-44.9, adult Narrative/Plan: 36 row female with morbid obesity and associated comorbidities. We'll proceed with sleeve gastrectomy in the near future. Discussed possibly performing the surgery robotically. She is agreeable. The risks of bleeding, infection, stenosis, stricture, leak, abscess, fistula formation, peritonitis, poor weight loss, reflux, vomiting, conversion to an open procedure, aborting sleeve gastrectomy, [place], PE, DVT, and were discussed. The patient understands and wishes to proceed. Plan: Date: 01/15/22 Initial Weight: Initial BMI: Current Weight: 122.47 kg Current BMI: 44.9 Type of Surgery: Total Volume in Band: Previous Volume: Volume Removed: Volume Added: Band Size:
== END | disposition home or self-care (01) ==
LOC: BARWHC3 14:02
PROVIDERS: ATTEND Surgery
DX: E66.01 Morbid (severe) obesity due to excess calories (principal); Z68.41 Body mass index [BMI] 40.0-44.9, adult
CPT/HCPCS: 99211

== ENCOUNTER → 2022-05-31 | Outpatient (CLI) | payer OTHER ==
[2022-05-31 22:29] LABS: Basophils # (A) 0.03 X 10*3/uL (0.00-0.10); Basophils % (A) 0.5 %; Eosinophils # (A) 0.13 X 10*3/uL (0.04-0.35); Eosinophils % (A) 2.1 %; HGB 12.6 g/dL (12.0-15.0); Immature Grans, Automated 0.2 %; Lymphocytes # (A) 1.67 X 10*3/uL (0.90-5.00); Lymphocytes % (A) 27.2 %; MCH 28.6 pg (27.0-32.0); MCHC 32.3 g/dL (32.0-37.0); MCV 88.6 fL (80.0-97.0); Monocytes # (A) 0.36 X 10*3/uL (0.20-1.00); Monocytes % (A) 5.9 %; NRBC Per 100 WBC 0 /100 WBCS (0.0-0.0); Neutrophils # (A) 3.93 X 10*3/uL (1.80-7.70); Neutrophils % (A) 64.1 %; Platelet Count 276 X 10*3/uL (140-440); RDW 12.5 % (11.5-14.5); WBC 6.13 X 10*3/uL (4.50-10.00)
[2022-05-31 22:32] LABS: ALT 26 U/L (8-44); AST 22 U/L (13-35); African American GFR (CKD) 109.2 (60.0-200.0); Albumin 4.8 g/dL (3.8-4.9); Albumin/Globulin Ratio 1.92 (1.60-3.17); Alkaline Phosphatase 53 U/L (41-126); BUN/Creat Ratio 22.63 Ratio (12.00-20.00); Blood Urea Nitrogen 18.1 mg/dL (9.0-27.0); Calcium 9.7 mg/dL (8.7-10.3); Carbon Dioxide 26.2 mmol/L (20.0-27.5); Chloride 101 mmol/L (96-109); Globulin 2.5 g/dL (1.6-3.3); Glucose 93 mg/dL (70-110); Non-African American GFR(CKD) 94.2 (60.0-200.0); Potassium 4.3 mmol/L (3.5-5.5); Sodium 136 mmol/L (135-145); Total Bilirubin <0.15 mg/dL (0.30-1.20); Total Protein 7.3 g/dL (6.2-8.2)
== END | disposition home or self-care (01) ==
LOC: LABPAT 14:34
PROVIDERS: ATTEND Surgery
DX: Z01.812 Encounter for preprocedural laboratory examination (principal)
CPT/HCPCS: 80053; 85025

== ENCOUNTER 2022-06-03 12:30 | Inpatient (IN) | payer OTHER ==
[2022-06-04] MEDS ORDERED: ENOXAPARIN 40 MG/0.4 ML SYRINGE SQ PRN (05:00)
[2022-06-04] MEDS ORDERED: SCOPOLAMINE 1 MG/72 HR PATCH TRANSDERM ONE (06:00)
[2022-06-04] MEDS ORDERED: ONDANSETRON 4 MG/2 ML VIAL IVP ONE (06:00)
[2022-06-04] MEDS ORDERED: LIDOCAINE 1% (10MG/ML) FOR IV START INTRADERMA PRN (06:00)
[2022-06-04] MEDS ORDERED: DEXAMETHASONE SOD PHOSPHATE 4 MG/ML 1 ML VIAL IV ONE (06:00)
--- NOTE | 2022-06-04 08:45 | P.GSHP ---
History of Present Illness H&P Date: 06/04/22 Chief Complaint: morbid obesity 37-year-old female here today for elective sleeve gastrectomy. Patient first seen for possible bariatric surgery last August. Patient with history of hypertension, asthma, chronic back pain, arthritis, reflux. Underwent EGD showing mild gastritis. Patient has quit smoking as of last year. No history of DVT or dysphagia. BMI 44. Past Medical History Past Medical History: Asthma, Hypertension, Osteoarthritis (OA), Thyroid Disorder Additional Past Medical History / Comment(s): migraines, palpitaions, IBS, arthritis, hx hypothyroid-no rx currently, chronic edwar kelly virus, immune hypoglobulinemia, History of Any Multi-Drug Resistant Organisms: None Reported Past Surgical History: Appendectomy, Cholecystectomy, Orthopedic Surgery Additional Past Surgical History / Comment(s): right knee arthroscopy, L acl reconstruction, L knee arthroscopy, EGD, COLONOSCOPY Past Anesthesia/Blood Transfusion Reactions: Family History of Problems w/ Anesthesia, Motion Sickness, Postoperative Nausea & Vomiting (PONV) Additional Past Anesthesia/Blood Transfusion Reaction / Comment(s): father- oxygen level dropped and lost since of smell and taste Smoking Status: Former smoker - Past Family History Mother Family Medical History: AFIB Father Family Medical History: Diabetes Mellitus, Hyperlipidemia, Hypertension Medications and Allergies Home Medications Medication Instructions Recorded Confirmed Type L.acidoph,Paracasei, B.lactis 1 cap PO DAILY 07/24/20 05/28/22 History [Probiotic] Magnesium Oxide [Sagastume] 500 mg PO DAILY 07/24/20 05/28/22 History Potassium Gluconate [Potassium 99 mg PO DAILY 07/24/20 05/28/22 History Gluconate ER] Vitamin B Complex 1 cap PO DAILY 07/24/20 05/28/22 History Calcium Carbonate [Calcium] 600 mg PO DAILY 07/21/21 05/28/22 History Cetirizine HCl [Zyrtec] 10 mg PO DAILY 07/21/21 05/28/22 History Cholecalciferol [Vitamin D3 (25 100 mcg PO DAILY 07/21/21 05/28/22 History Mcg = 1000 Iu)] Ibuprofen [Motrin] 600 mg PO Q8H PRN 07/21/21 05/28/22 History Montelukast [Singulair] 10 mg PO DAILY 07/21/21 05/28/22 History Simethicone Chew [Mylicon Chew] 80 mg PO QID PRN 07/21/21 05/28/22 History lisinopriL [Zestril] 10 mg PO DAILY 11/05/21 05/28/22 History Omeprazole [PriLOSEC] 20 mg PO AC-BRKFST #90 cap 11/06/21 05/28/22 Rx Zolpidem [Ambien] 10 mg PO HS PRN 05/28/22 05/28/22 History Allergies Allergy/AdvReac Type Severity Reaction Status Date / Time Tetracyclines AdvReac Nausea & Verified 05/28/22 12:12 Vomiting & Diarrhea Surgical - Exam Physical exam: General: Well-developed, well-nourished HEENT: Normocephalic, sclerae nonicteric Abdomen: Nontender, nondistended Extremities: No edema Neuro: Alert and oriented Assessment and Plan (1) Morbid obesity with BMI of 40.0-44.9, adult Narrative/Plan: 37-year-old female with morbid obesity and associated comorbidities. Patient remains interested in sleeve gastrectomy. We'll proceed with laparoscopic da Charly assisted sleeve gastrectomy, possible open. The risks of bleeding, infection, stenosis, stricture, leak, abscess, fistula formation, peritonitis, poor weight loss, reflux, vomiting, conversion to an open procedure, aborting sleeve gastrectomy, [place], PE, DVT, and were discussed. The patient understands and wishes to proceed. Status: Acute Code(s): E66.01 - MORBID (SEVERE) OBESITY DUE TO EXCESS CALORIES; Z68.41 - BODY MASS INDEX [BMI] 40.0-44.9, ADULT SNOMED Code(s): 783553136
[2022-06-04] MEDS: LACTATED RINGERS 1,000 ML IV SCH (11:36)
[2022-06-04] MEDS ORDERED: MIDAZOLAM 2 MG/2 ML VIAL ONE (12:35)
[2022-06-04] MEDS ORDERED: NEOSTIGMINE 1 MG/ML 10 ML VIAL ONE (12:35)
[2022-06-04] MEDS ORDERED: ROCURONIUM 10 MG/ML (5 ML VIAL) IV ONE (12:35)
[2022-06-04] MEDS ORDERED: LIDOCAINE 2% INJ 20 MG/ML (2 ML VIAL) ONE (12:35)
[2022-06-04] MEDS ORDERED: SUCCINYLCHOLINE CHLORIDE 200 MG/10 ML VIAL IV ONE (12:35)
[2022-06-04] MEDS ORDERED: KETOROLAC 15 MG/ML 1 ML VIAL ONE (12:35)
[2022-06-04] MEDS ORDERED: PROPOFOL 10 MG/ML 20 ML VIAL IV ONE (12:35)
[2022-06-04] MEDS ORDERED: ePHEDrine 50 MG/ML 1 ML VIAL ONE (12:35)
[2022-06-04] MEDS ORDERED: GLYCOPYRROLATE 0.2 MG/ML 2 ML VIAL ONE (12:35)
[2022-06-04] MEDS ORDERED: fentaNYL (PF) 50 MCG/ML 2 ML AMP ONE (12:35)
[2022-06-04] MEDS ORDERED: HYDROmorphone (PF) 1 MG/ML ONE (12:35)
[2022-06-04] MEDS ORDERED: BUPIVACAIN-EPI 0.25%-1:200,000 30 ML VIAL SQ ONE (13:45)
[2022-06-04] MEDS ORDERED: HYDROmorphone 0.5 MG/0.5 ML SYRINGE IVP PRN (14:52)
[2022-06-04] MEDS ORDERED: diphenhydrAMINE 50 MG/ML 1 ML VIAL IVP PRN (14:52)
[2022-06-04] MEDS ORDERED: NALOXONE 0.4 MG/ML 1 ML VIAL IV PRN (14:52)
--- NOTE | 2022-06-04 14:58 | P.OP ---
Date of Procedure: 06/04/22 Procedure(s) Performed: PREOPERATIVE DIAGNOSIS: Morbid obesity, hypertension, asthma, chronic back pain, arthritis, reflux POSTOPERATIVE DIAGNOSIS: Same PROCEDURE: Da Charly assisted laparoscopic sleeve gastrectomy SURGEON: Mayuri EBL: Minimal ANESTHESIA: General COMPLICATIONS: None OPERATIVE PROCEDURE: Patient was placed in the operating table in the supine position. The patient was then placed under general anesthesia at that time. The abdomen was prepped and draped in the usual sterile fashion. A 5 mm optical trocar was placed in the left upper quadrant 20 cm inferior to the xiphoid process. Insufflation took place up to 15 mmHg. No adhesions were seen. A 5 mm subxiphoid incision was made and the large Asha retractor was used to elevate the left lobe of liver anteriorly. This was held in place using the fixed arm retractor. An additional 12 mm trocar was placed in the right vanda edian location and 2 additional 8 mm trochars were placed in the left upper quadrant one medial and one lateral to the initially placed optical trocar. All of these trochars were placed along the same plane. The initial 5 was then switched to an 8 mm trocar. The robot was then docked appropriately. The 8 mm camera was placed in the left paramedian trocar site down viewing. A fenestrated bipolar was placed in arm 1, arm 3 had the vessel sealer, arm 4 had the small grasper retractor. The hiatus was inspected and there was no visible hiatal hernia. At that point I moved to the distal aspect of the greater curvature the stomach. The short gastric vasculature were divided using the vessel sealer. This dissection took place distally until we were 4 cm from the pylorus. The posterior adhesions were divided as well. The dissection then took place proximally along the stomach until the posterior short gastrics were divided and the fundus of the stomach was fully mobilized. Once the stomach was fully mobilized the blunt tipped 40-Malagasy bougie dilator was advanced into the stomach and advanced all the way to the prepyloric location. The patient's stomach by palpation seemed to be of average thickness. No buttressing was utilized. Sequential firings of the stapler took place. The first load was green, second and third fourth and fifth load were blue, 6 load to cover a small section was white. Staple line was inspected and no bleeding was seen. The stomach was then placed in the right upper quadrant after it was fully excised. The oral gastric tube was reinserted. The stomach was insufflated with approximately 100 mL of methylene blue. No evidence of leak or obstruction was seen. Tisseel fibrin glue was then used along the length of the staple line. The robot was then undocked. The da Charly laparoscope was used and the stomach was removed from the 12 mm trocar site without difficulty. The fascia at the 12mm site was closed using [id number] 0 Vicryl sutures with the laparoscopic suture passer and Олег Yoon technique. The insufflation was evacuated. The skin at all 5 incisions were closed using 4-0 Monocryl sutures. Skin glue was then applied. DISPOSITION: Stable to recovery room
[2022-06-04] MEDS ORDERED: diphenhydrAMINE 50 MG/ML 1 ML VIAL IVP ONE ×2 (15:05)
[2022-06-04] MEDS: HYDROmorphone 0.5 MG/0.5 ML SYRINGE IVP PRN ×4 (15:14→15:56)
[2022-06-04] MEDS ORDERED: LACTATED RINGERS 1,000 ML IV ONE ×2 (15:17)
[2022-06-04] MEDS: ALBUTEROL NEBULIZED 2.5 MG/3 ML INHALATION SCH ×2 (15:24→19:24)
[2022-06-04] MEDS: HYOSCYAMINE ORAL DROPS 1.875 MG/15 ML BOTTLE PO PRN (15:39)
[2022-06-04] MEDS ORDERED: ACETAMINOPHEN IV (For NPO) 1,000 MG/100 ML VIAL IVPB ONE (16:00)
[2022-06-04] MEDS: ACETAMINOPHEN IV (For NPO) 1,000 MG in EMPTY BAG 1 BAG IVPB SCH ×2 (16:05→20:40)
[2022-06-04] MEDS ORDERED: fentaNYL (PF) 50 MCG/ML 2 ML AMP IVP ONE (16:27)
[2022-06-04] MEDS: HYDROmorphone 1 MG/ML 1 ML SYRINGE IVP PRN ×3 (17:39→23:22)
[2022-06-04] MEDS: SIMETHICONE 40 MG/0.6 ML DROPS 2,000 MG/30 ML BOTTLE PO PRN (19:22)
[2022-06-04] MEDS: ONDANSETRON 4 MG/2 ML VIAL IVP PRN (20:40)
[2022-06-04] MEDS: 0.9% NACL WITH KCL 20 MEQ/L 1,000 ML IV SCH ×2 (21:38→22:15)
[2022-06-05] MEDS: ENOXAPARIN 40 MG/0.4 ML SYRINGE SQ SCH ×2 (00:42→12:08)
[2022-06-05] MEDS: HYOSCYAMINE ORAL DROPS 1.875 MG/15 ML BOTTLE PO PRN ×4 (01:52→23:50)
[2022-06-05] MEDS: SIMETHICONE 40 MG/0.6 ML DROPS 2,000 MG/30 ML BOTTLE PO PRN ×4 (01:52→23:51)
[2022-06-05] MEDS: ONDANSETRON 4 MG/2 ML VIAL IVP PRN ×4 (02:22→23:49)
[2022-06-05] MEDS: HYDROmorphone 1 MG/ML 1 ML SYRINGE IVP PRN ×4 (02:25→16:15)
[2022-06-05] MEDS: ACETAMINOPHEN IV (For NPO) 1,000 MG in EMPTY BAG 1 BAG IVPB SCH ×5 (02:26→23:50)
[2022-06-05] MEDS: 0.9% NACL WITH KCL 20 MEQ/L 1,000 ML IV SCH ×3 (04:49→18:24)
[2022-06-05] MEDS: LACTATED RINGERS 1,000 ML IV SCH (05:50)
[2022-06-05] MEDS: PANTOPRAZOLE 40 MG/10 ML VIAL IV SCH (08:16)
[2022-06-05] MEDS: ALBUTEROL NEBULIZED 2.5 MG/3 ML INHALATION SCH ×4 (08:35→21:05)
[2022-06-05 09:33] LABS: Magnesium 1.9 mg/dL (1.5-2.4)
[2022-06-05 09:35] LABS: African American GFR (CKD) 128.3 (60.0-200.0); Anion Gap 12.6 mmol/L (10.00-18.00); Blood Urea Nitrogen 7.8 mg/dL (9.0-27.0); Calcium 8.9 mg/dL (8.7-10.3); Carbon Dioxide 22.4 mmol/L (20.0-27.5); Non-African American GFR(CKD) 110.7 (60.0-200.0); Phosphorus 3.2 mg/dL (2.4-5.1); Potassium 4.8 mmol/L (3.5-5.5)
--- NOTE | 2022-06-05 09:43 | FL ---
EXAMINATION TYPE: FL UGI DATE OF EXAM: 06/05/2022 COMPARISON: None HISTORY: Post gastric sleeve TECHNIQUE: A single contrast UGI study is performed. Fluoroscopy time: 21 seconds. Images: 7 FINDINGS: Contrast passes from the distal esophagus through the gastric sleeve with no significant he sitancy. No extravasation of contrast is evident. Small amount of free air is under the right diaphragm. Overhead radiographs were obtained which are unremarkable. IMPRESSIONS: 1. Normal post gastric sleeve without obstruction or hesitancy. No extravasation. 2. Mild postsurgical pneumoperitoneum.
[2022-06-05 09:49] LABS: Basophils # (A) 0.01 X 10*3/uL (0.00-0.10); Basophils % (A) 0.1 %; Eosinophils # (A) 0 X 10*3/uL (0.04-0.35); Eosinophils % (A) 0 %; HCT 37.1 % (37.2-46.3); Immature Grans, Automated 0.2 %; Lymphocytes # (A) 1.64 X 10*3/uL (0.90-5.00); Lymphocytes % (A) 18.5 %; MCH 28.9 pg (27.0-32.0); MCHC 32.3 g/dL (32.0-37.0); MCV 89.4 fL (80.0-97.0); Mean Platelet Volume 10.4 fL (9.5-12.2); Monocytes # (A) 0.53 X 10*3/uL (0.20-1.00); NRBC Per 100 WBC 0 /100 WBCS (0.0-0.0); Neutrophils # (A) 6.66 X 10*3/uL (1.80-7.70); Neutrophils % (A) 75.2 %; Platelet Count 237 X 10*3/uL (140-440); RBC 4.15 X 10*6/uL (4.10-5.20); RDW 12.4 % (11.5-14.5); WBC 8.86 X 10*3/uL (4.50-10.00)
[2022-06-05] MEDS: KETOROLAC 15 MG/ML 1 ML VIAL IVP SCH ×3 (12:08→23:49)
--- NOTE | 2022-06-05 13:01 | P.PN ---
Subjective Progress Note Date: 06/05/22 CHIEF COMPLAINT: Morbid obesity HISTORY OF PRESENT ILLNESS: Patient is postop day 1 status post Da Charly assisted laparoscopic sleeve gastrectomy. Patient reports that her pain is controlled. She did have some nausea earlier that has improved. No flatus or bowel movement. She did have urinary retention and required to be straight cathed times one. Since then she's been urinating without difficulty and adequately. Upper GI demonstrates normal post gastric sleeve without obstruction or hesitancy. No extravasation. Mild postsurgical pneumoperitoneum. Afebrile. WBC is 8.86 Hgb 12 creatinine 0.7 magnesium 1.9 PHYSICAL EXAM: VITAL SIGNS: Reviewed. GENERAL: Well-developed in no acute distress. HEENT: No sclera icterus. Extraocular movements grossly intact. Moist buccal mucosa. Head is atraumatic, normocephalic. ABDOMEN: Soft. Nondistended. Incision sites clean dry and intact. Abdominal binder in place. NEUROLOGIC: Alert and oriented. Cranial nerves II through XII grossly intact. ASSESSMENT: 1. Morbid obesity 2. Hypertension 3. Asthma 4. Chronic back pain 5. Arthritis 6. Reflux PLAN: -Start bariatric clear liquid diet -Toradol added for pain control -Resume IV Tylenol -Continue IV fluids -Encourage patient to ambulate -GI prophylaxis Protonix and DVT prophylaxis Lovenox Physician Senior Designer/Art Director note has been reviewed by physician. Signing provider agrees with the documented findings, assessment, and plan of care. Objective - Vital Signs Vital signs: Vital Signs Temp 98.2 F 06/05/22 08:00 Pulse 86 06/05/22 08:00 Resp 18 06/05/22 11:29 BP 126/75 06/05/22 08:00 Pulse Ox 99 06/05/22 08:00 FiO2 Intake & Output 06/04/22 06/05/22 06/05/22 18:59 06:59 18:59 Intake Total 1999 1900 Output Total 10 1100 400 Balance 1989 800 -400 Weight 117.4 kg Intake: IV 1700 Intake, IV Titration 300 1900 Amount 0.9% NaCl with KCl 20 Meq 300 /l 1,000 ml @ 100 mls/hr IV .Q10H ISABEL Rx#: [id number] 0.9% NaCl with KCl 20 Meq 1800 /l 1,000 ml @ 150 mls/hr IV .Q6H40M ISABEL Rx#: [id number] ACETAMINOPHEN IV (For NPO 100 ) 1,000 mg In Empty Bag 1 bag @ 400 mls/hr IVPB Q6H ISABEL Rx#:[id number] Output: Urine 1100 400 Straight 400 Estimated Blood Loss 10 Other: Voiding Method Toilet Toilet - Labs CBC & Chem 7: 06/05/22 06:11 06/05/22 06:11 Labs: Abnormal Lab Results - Last 24 Hours (Table) 06/05/22 06/05/22 Range/Units 06:11 06:11 Hct 37.1 L (37.2-46.3) % Eosinophils # 0 L (0.04-0.35) X 10*3/uL BUN 7.8 L (9.0-27.0) mg/dL
[2022-06-05 13:42] VITALS: BMI 44.4
[2022-06-05] MEDS ORDERED: HYDROcodone/APAP 5-325MG 1 EACH TAB PO PRN (14:46)
[2022-06-05] MEDS: HYDROcodone/APAP 15 ML SOLUTION PO PRN (21:35)
[2022-06-05] MEDS ORDERED: ZOLPIDEM 5 MG TAB PO PRN (22:56)
[2022-06-06] MEDS: ENOXAPARIN 40 MG/0.4 ML SYRINGE SQ SCH ×2 (00:19→13:10)
--- NOTE | 2022-06-06 00:29 | P.CONS ---
History of Present Illness - Reason for Consult Consult date: 06/05/22 Medical management - Chief Complaint Status post sleeve gastrectomy - History of Present Illness Patient is a 37-year-old female with a known history of hypertension, asthma, hypothyroidism and osteoarthritis, IBS, migraine headaches and other multiple medical problems including previous history of smoking was admitted to the hospital for elective sleeve gastrectomy. Patient is status post surgery on 06/04/2022. Currently patient does have some nausea. Abdominal discomfort is much improved. No complaints of cough or sputum production. No chest pain or shortness of breath. No nausea vomiting or abdominal pain or diarrhea. Blood pressure was elevated overnight at 155/98. Patient is currently not passing flatus. No bowel meant. Laboratory data WBC 8.8 hemoglobin 12.0 and platelets 237 Sodium 137 potassium 4.8 chloride 102 bicarb is 22.4 BUN 7.8 and creatinine 0.7 and magnesium 1.9. Review of Systems Constitutional: Patient denies any fever or chills . no Generalized weakness. Abdomen: Patient does have nausea. no vomiting or abd. pain Cardiovascular: Patient denies any chest pain or short of breath no palpitations. Respiratory: patient denied any cough is from production. No shortness of breath Neurologic: Patient denied any numbness or tingling headache. Musculoskeletal: Patient denies any complaints of joint swelling or deformity. Skin: Negative Psychiatric: Negative Endocrine: No heat or cold intolerance. No recent weight gain. Genitourinary: No dysuria or hematuria. All other 14 point ROS negative except the above Past Medical History Past Medical History: Asthma, Hypertension, Osteoarthritis (OA), Thyroid Disorder Additional Past Medical History / Comment(s): migraines, palpitaions, IBS, arthritis, hx hypothyroid-no rx currently, chronic edwar kelly virus, immune hypoglobulinemia, History of Any Multi-Drug Resistant Organisms: None Reported Past Surgical History: Appendectomy, Cholecystectomy, Orthopedic Surgery Additional Past Surgical History / Comment(s): right knee arthroscopy, L acl reconstruction, L knee arthroscopy, EGD, COLONOSCOPY Past Anesthesia/Blood Transfusion Reactions: Family History of Problems w/ Anesthesia, Motion Sickness, Postoperative Nausea & Vomiting (PONV) Additional Past Anesthesia/Blood Transfusion Reaction / Comm: father-oxygen level dropped and lost since of smell and taste Smoking Status: Former smoker - Past Family History Mother Family Medical History: AFIB Father Family Medical History: Diabetes Mellitus, Hyperlipidemia, Hypertension Medications and Allergies Home Medications Medication Instructions Recorded Confirmed Type L.acidoph,Paracasei, B.lactis 1 cap PO DAILY 07/24/20 05/28/22 History [Probiotic] Magnesium Oxide [Sagastume] 500 mg PO DAILY 07/24/20 05/28/22 History Potassium Gluconate [Potassium 99 mg PO DAILY 07/24/20 05/28/22 History Gluconate ER] Vitamin B Complex 1 cap PO DAILY 07/24/20 05/28/22 History Calcium Carbonate [Calcium] 600 mg PO DAILY 07/21/21 05/28/22 History Cetirizine HCl [Zyrtec] 10 mg PO DAILY 07/21/21 05/28/22 History Cholecalciferol [Vitamin D3 (25 100 mcg PO DAILY 07/21/21 05/28/22 History Mcg = 1000 Iu)] Ibuprofen [Motrin] 600 mg PO Q8H PRN 07/21/21 05/28/22 History Montelukast [Singulair] 10 mg PO DAILY 07/21/21 05/28/22 History Simethicone Chew [Mylicon Chew] 80 mg PO QID PRN 07/21/21 06/04/22 History lisinopriL [Zestril] 10 mg PO DAILY 11/05/21 05/28/22 History Omeprazole [PriLOSEC] 20 mg PO AC-BRKFST #90 cap 11/06/21 05/28/22 Rx Zolpidem [Ambien] 10 mg PO HS PRN 05/28/22 06/04/22 History Allergies Allergy/AdvReac Type Severity Reaction Status Date / Time Tetracyclines AdvReac Nausea & Verified 05/28/22 12:12 Vomiting & Diarrhea Physical Exam Vitals: Vital Signs Temp Pulse Pulse Pulse Resp BP BP 06/05/22 08:00 98.2 F 86 17 126/75 06/05/22 01:55 98.4 F 89 15 119/73 06/04/22 20:38 98.4 F 100 15 155/98 06/04/22 20:00 98.4 F 110 H 16 06/04/22 18:34 97 138/85 06/04/22 17:50 95 139/87 06/04/22 17:34 98 146/69 06/04/22 17:04 97.6 F 98 17 149/94 06/04/22 16:15 94 16 139/70 06/04/22 16:00 96 16 139/70 06/04/22 15:44 97 16 145/67 06/04/22 15:29 70 16 141/66 06/04/22 15:19 89 147/85 06/04/22 15:14 98 16 120/86 06/04/22 14:59 97.1 F L 94 14 135/68 06/04/22 11:28 97.4 F L 97 16 125/71 Pulse Ox 06/05/22 08:00 99 06/05/22 01:55 97 06/04/22 20:38 98 06/04/22 20:00 98 06/04/22 18:34 93 L 06/04/22 17:50 98 06/04/22 17:34 97 06/04/22 17:04 97 06/04/22 16:15 96 06/04/22 16:00 97 06/04/22 15:44 96 06/04/22 15:29 97 06/04/22 15:19 92 L 06/04/22 15:14 100 06/04/22 14:59 06/04/22 11:28 96 Intake and Output 06/04/22 06/05/22 06/05/22 22:59 06:59 14:59 Intake Total 1150 1900 Output Total 1100 400 Balance 1150 800 -400 Intake: IV 850 Intake, IV Titration 300 1900 Amount 0.9% NaCl with KCl 20 Meq 300 /l 1,000 ml @ 100 mls/hr IV .Q10H ISABEL Rx#: [id number] 0.9% NaCl with KCl 20 Meq 1800 /l 1,000 ml @ 150 mls/hr IV .Q6H40M ISABEL Rx#: [id number] ACETAMINOPHEN IV (For NPO 100 ) 1,000 mg In Empty Bag 1 bag @ 400 mls/hr IVPB Q6H ISABEL Rx#:[id number] Output: Urine 1100 400 Straight 400 Other: Voiding Method Toilet PHYSICAL EXAMINATION: Patient is lying in the bed comfortably, no acute distress, awake alert and oriented.. HEENT: Normocephalic. Neck is supple. Pupils reactive. Nostrils clear. Oral cavity is moist. Neck reveals no JVD, carotid bruits, or thyromegaly. CHEST EXAMINATION: Trachea is central. Symmetrical expansion. Lung renee clear to auscultation and percussion. CARDIAC: Normal S1, S2 with no gallops. No murmurs ABDOMEN: Soft. Bowel sounds present. Nontender. No organomegaly. No abdominal bruits. Extremities: reveal no edema. No clubbing or cyanosis Neurologically awake, alert, oriented x3 with well-coordinated movements. No focal deficits noted Skin: No rash or skin lesions. Psychiatric: Coperative. Nonsuicidal, anxious. Musculoskeletal: No joint swelling or deformity. Normal range of motion. Results CBC & Chem 7: 06/05/22 06:11 06/05/22 06:11 Labs: Abnormal Lab Results - Last 24 Hours (Table) 06/05/22 06/05/22 Range/Units 06:11 06:11 Hct 37.1 L (37.2-46.3) % Eosinophils # 0 L (0.04-0.35) X 10*3/uL BUN 7.8 L (9.0-27.0) mg/dL Assessment and Plan Assessment: S/p laparoscopic sleeve gastrectomy postoperative day 1. Morbid obesity BMI 44.4 Hypertension. Currently blood pressure is not elevated. Asthma not in exacerbation Osteoarthritis Chronic back pain Hypothyroidism GERD DVT prophylaxis and GI prophylaxis Plan: Patient will be continued on gentle IV hydration and started on bariatric clear liquid diet. Current with pain management and bowel regimen DVT prophylaxis as per primary team. Encourage ambulation and incentive spirometry. Will hold blood pressure medications at this time and restart once blood pressure elevates. Continue to follow closely. Monitor H&H. Further recommendations based on clinical course. Thank you for your consult. Time with Patient: Greater than 30
[2022-06-06 01:49] VITALS: RESP 16
[2022-06-06] MEDS: HYDROcodone/APAP 15 ML SOLUTION PO PRN ×2 (04:41→09:43)
[2022-06-06] MEDS: ONDANSETRON 4 MG/2 ML VIAL IVP PRN ×2 (05:57→14:31)
[2022-06-06] MEDS: KETOROLAC 15 MG/ML 1 ML VIAL IVP SCH ×2 (05:59→13:03)
[2022-06-06] MEDS: HYOSCYAMINE ORAL DROPS 1.875 MG/15 ML BOTTLE PO PRN (06:00)
[2022-06-06] MEDS: ACETAMINOPHEN IV (For NPO) 1,000 MG in EMPTY BAG 1 BAG IVPB SCH (06:01)
[2022-06-06] MEDS: SIMETHICONE 40 MG/0.6 ML DROPS 2,000 MG/30 ML BOTTLE PO PRN (06:01)
[2022-06-06] MEDS: LACTATED RINGERS 1,000 ML IV SCH (06:27)
[2022-06-06] MEDS: 0.9% NACL WITH KCL 20 MEQ/L 1,000 ML IV SCH ×2 (07:01→13:19)
[2022-06-06] MEDS ORDERED: bisacodyL 5 MG TABLET.DR PO PRN (08:00)
[2022-06-06 08:06] VITALS: BP 111/75; PULSE 75; TEMP 97
[2022-06-06] MEDS: ALBUTEROL NEBULIZED 2.5 MG/3 ML INHALATION SCH ×3 (08:28→14:51)
[2022-06-06] MEDS ORDERED: lisinopriL 10 MG TAB PO SCH (09:00)
[2022-06-06] MEDS ORDERED: MONTELUKAST 10 MG TAB PO SCH (09:00)
[2022-06-06] MEDS: PANTOPRAZOLE 40 MG/10 ML VIAL IV SCH (09:43)
--- NOTE | 2022-06-06 14:02 | P.DS ---
Providers Date of admission: 06/04/22 11:00 Expected date of discharge: 06/06/22 Attending physician: Israel Messina Consults: 06/04/22 14:52 Consult Physician Routine Consulting Provider: Guille Pereyra Consult Reason/Comments: Medical management Do you want consulting provider notified?: Yes Primary care physician: Sunitha Song Hospital Course: Discharge diagnosis 1. Morbid obesity patient is status post Da Charly assisted laparoscopic sleeve gastrectomy 2. Hypertension 3. Asthma 4. Chronic back pain 5. Arthritis 6. Reflux 7. Urinary retention resolved This is a 37-year-old female with a known history of morbid obesity. She is status post Da Charly assisted laparoscopic sleeve gastrectomy. Patient tolerated surgery well. Her pain is controlled. She has been up and ambulating. Upper GI shows no obstruction or hesitancy. No extravasation. Mild postsurgical pneumoperitoneum. She is tolerating diet. She is afebrile. She is having flatus. She denies any difficulty urinating. She is stable for discharge. Please refer to chart for any further details. Physician Crop Scout note has been reviewed by physician. Signing provider agrees with the documented findings, assessment, and plan of care. Patient Condition at Discharge: Stable Plan - Discharge Summary Discharge Rx Participant: Yes New Discharge Prescriptions: New Simethicone 40 mg/0.6 ml Drops [Mylicon Drops] 40 mg PO PCHS PRN #30 ml PRN Reason: Gas HYDROcodone/APAP 5-325MG [Preston 5-325] 1 tab PO Q6HR PRN 2 Days #5 tab PRN Reason: Pain Omeprazole [PriLOSEC] 40 mg PO DAILY #30 cap Ondansetron Odt [Zofran Odt] 4 mg PO Q8HR PRN #9 tab PRN Reason: Nausea bisacodyL [Dulcolax] 5 mg PO DAILY PRN #10 tab PRN Reason: Constipation Hyoscyamine Oral Drops [Levsin Drops] 0.125 mg PO Q6HR PRN ml PRN Reason: Esophageal Spasm Continue L.acidoph,Paracasei, B.lactis [Probiotic] 1 cap PO DAILY Potassium Gluconate [Potassium Gluconate ER] 99 mg PO DAILY Magnesium Oxide [Sagastume] 500 mg PO DAILY Cetirizine HCl [Zyrtec] 10 mg PO DAILY Montelukast [Singulair] 10 mg PO DAILY Zolpidem [Ambien] 10 mg PO HS PRN PRN Reason: Insomnia lisinopriL [Zestril] 10 mg PO DAILY #0 Discontinued Vitamin B Complex 1 cap PO DAILY Ibuprofen [Motrin] 600 mg PO Q8H PRN PRN Reason: Pain Cholecalciferol [Vitamin D3 (25 Mcg = 1000 Iu)] 100 mcg PO DAILY Simethicone Chew [Mylicon Chew] 80 mg PO QID PRN PRN Reason: Indigestion Calcium Carbonate [Calcium] 600 mg PO DAILY Omeprazole [PriLOSEC] 20 mg PO AC-BRKFST #90 cap Discharge Medication List L.acidoph,Paracasei, B.lactis [Probiotic] 1 cap PO DAILY 07/24/20 [History] Magnesium Oxide [Sagastume] 500 mg PO DAILY 07/24/20 [History] Potassium Gluconate [Potassium Gluconate ER] 99 mg PO DAILY 07/24/20 [History] Cetirizine HCl [Zyrtec] 10 mg PO DAILY 07/21/21 [History] Montelukast [Singulair] 10 mg PO DAILY 07/21/21 [History] Zolpidem [Ambien] 10 mg PO HS PRN 05/28/22 [History] HYDROcodone/APAP 5-325MG [Preston 5-325] 1 tab PO Q6HR PRN 2 Days #5 tab 06/06/22 [Rx] Hyoscyamine Oral Drops [Levsin Drops] 0.125 mg PO Q6HR PRN ml 06/06/22 [Rx] Omeprazole [PriLOSEC] 40 mg PO DAILY #30 cap 06/06/22 [Rx] Ondansetron Odt [Zofran Odt] 4 mg PO Q8HR PRN #9 tab 06/06/22 [Rx] Simethicone 40 mg/0.6 ml Drops [Mylicon Drops] 40 mg PO PCHS PRN #30 ml 06/06/22 [Rx] bisacodyL [Dulcolax] 5 mg PO DAILY PRN #10 tab 06/06/22 [Rx] lisinopriL [Zestril] 10 mg PO DAILY #0 06/06/22 [Rx] [place] [facility]s[place]Ref[place]10[facility] 10:30 am Patient Instructions/Handouts: *Surgery [facility] - Scopalamine Patch Instructions, Nutrition after Bariatric Surgery (DC), Laparoscopic Sleeve Gastrectomy (DC) Activity/Diet/Wound Care/Special Instructions: No driving while taking Preston No lifting over 10 pounds You may shower. No soaking or tub baths for 2 weeks Very light activity until you are reevaluated at your follow up appointment with your surgeon No straws or carbonated beverages Hold on taking vitamin B, vitamin D and calcium supplements until seen by surgeon in office check BP daily. Hold taking lisinopril for SBP<120 Discharge Disposition: HOME SELF-CARE
--- NOTE | 2022-06-06 21:25 | P.PN ---
Subjective Progress Note Date: 06/06/22 - Reason for Consult Consult date: 06/05/22 Medical management - Chief Complaint Status post sleeve gastrectomy - History of Present Illness Patient is a 37-year-old female with a known history of hypertension, asthma, hypothyroidism and osteoarthritis, IBS, migraine headaches and other multiple medical problems including previous history of smoking was admitted to the hospital for elective sleeve gastrectomy. Patient is status post surgery on 06/04/2022. Currently patient does have some nausea. Abdominal discomfort is much improved. No complaints of cough or sputum production. No chest pain or shortness of breath. No nausea vomiting or abdominal pain or diarrhea. Blood pressure was elevated overnight at 155/98. Patient is currently not passing flatus. No bowel meant. Laboratory data WBC 8.8 hemoglobin 12.0 and platelets 237 Sodium 137 potassium 4.8 chloride 102 bicarb is 22.4 BUN 7.8 and creatinine 0.7 and magnesium 1.9. 06/06/2022 Patient is seen this morning walking the halls. Patient is continued on clear liquids and tolerating. Patient reports to passing gas and urinating with no difficulty. Patient is using incentive spirometer and encouraged to continue while at home as well. Abdominal binder encouraged. Patient is afebrile and denies nausea or vomiting. Patient denies chest pain or palpitations. Patient is anxious to go home today. Review of systems: Constitutional: Patient denies any fever or chills . no Generalized weakness. Abdomen: Patient does have nausea. no vomiting, reports some abd. pain, reports passing gas Cardiovascular: Patient denies any chest pain or short of breath no palpitations. Respiratory: patient denied any cough is from production. No shortness of breath Neurologic: Patient denied any numbness or tingling headache. Musculoskeletal: Patient denies any complaints of joint swelling or deformity. PHYSICAL EXAMINATION: Patient is walking the halls, no acute distress, awake alert and oriented.. HEENT: Normocephalic. Neck is supple. Pupils reactive. Nostrils clear. Oral cavity is moist. Neck reveals no JVD, carotid bruits, or thyromegaly. CHEST EXAMINATION: Trachea is central. Symmetrical expansion. Lung renee clear to auscultation and percussion. CARDIAC: Normal S1, S2 with no gallops. No murmurs ABDOMEN: Soft. Bowel sounds present. mildly tender. No organomegaly. No abdominal bruits. Extremities: reveal no edema. No clubbing or cyanosis Neurologically awake, alert, oriented x3 with well-coordinated movements. No focal deficits noted Skin: No rash or skin lesions. Psychiatric: Cooperative. Non-suicidal Musculoskeletal: No joint swelling or deformity. Normal range of motion. Assessment: S/p laparoscopic sleeve gastrectomy postoperative day 2. Morbid obesity BMI 44.4 Hypertension. Currently blood pressure is not elevated. Asthma not in exacerbation Osteoarthritis Chronic back pain Hypothyroidism GERD DVT prophylaxis and GI prophylaxis Plan: Patient will be continued on bariatric clear liquid diet and tolerating. Patient reports to passing gas and awaiting clearance from Dr. Messina for discharge today. Recommend to continue with current with pain management and bowel regimen DVT prophylaxis as per primary team. Encourage ambulation and incentive spirometry. Recommend to resume blood pressure medications at home and monitor. Further recommendations based on clinical course. Recommend follow up with pcp on discharge Patient reports she is being discharged today. Encouraged abdominal binder use while out of bed. Thank you for your consult. We will continue to follow during hospitalization. The impression and plan of care has been dictated by Kelly Chavez, Nurse Practitioner as directed. Dr. Maria Guadalupe MD I have performed a history and examination and MDM of this patient, discussed the same with the dictator, and agree with the dictator's assessment and plan as written ,documented as a scribe. Based on total visit time, I have performed more than 50% of the visit. Objective - Vital Signs Vital signs: Vital Signs Temp 97.0 F L 06/06/22 08:00 Pulse 75 06/06/22 08:00 Resp 16 06/06/22 08:00 BP 111/75 06/06/22 08:00 Pulse Ox 97 06/06/22 08:28 FiO2 Intake & Output 06/05/22 06/06/22 06/06/22 18:59 06:59 18:59 Output Total 1000 1300 Balance -1000 -1300 Weight 117.4 kg Output: Urine 1000 1300 Other: Voiding Method Toilet Toilet - Labs CBC & Chem 7: 06/05/22 06:11 06/05/22 06:11 Labs: Abnormal Lab Results - Last 24 Hours (Table) 06/05/22 Range/Units 06:11 Hct 37.1 L (37.2-46.3) % Eosinophils # 0 L (0.04-0.35) X 10*3/uL
== END 2022-06-06 15:34 | disposition home or self-care (01) | DRG 621 ==
LOC: 2ORMAIN 06-04 11:00 → 4SSUR 06-04 15:05
PROVIDERS: ADMIT Surgery; ATTEND Surgery
PROC: 8E0W4CZ Robotic Assisted Procedure of Trunk Region, Percutaneous Endoscopic Approach (ICD-10-PCS; 2022-06-04)
PROC: 0DB64Z3 Excision of Stomach, Percutaneous Endoscopic Approach, Vertical (ICD-10-PCS; principal; 2022-06-04 12:00)
DX: E66.01 Morbid (severe) obesity due to excess calories (principal); Z68.41 Body mass index [BMI] 40.0-44.9, adult; E03.9 Hypothyroidism, unspecified; G89.29 Other chronic pain; R33.9 Retention of urine, unspecified; I10 Essential (primary) hypertension; J45.909 Unspecified asthma, uncomplicated; K21.9 Gastro-esophageal reflux disease without esophagitis; K29.70 Gastritis, unspecified, without bleeding; M19.90 Unspecified osteoarthritis, unspecified site; Z79.899 Other long term (current) drug therapy; Z87.891 Personal history of nicotine dependence
CPT/HCPCS: 74240; 80051; 81025; 82310; 82565; 83735; 84100; 84520; 85025; 86850; 86900; 86901; 88307; 94760

== ENCOUNTER → 2022-06-12 | Outpatient (CLI) | payer OTHER ==
[2022-06-12 11:51] VITALS: BP 135/87; PULSE 118; TEMP 97.7; BMI 42.9
== END | disposition home or self-care (01) ==
LOC: BARWHC3 10:53
PROVIDERS: ATTEND Surgery
DX: E66.01 Morbid (severe) obesity due to excess calories (principal)
CPT/HCPCS: 97802; 99211

== ENCOUNTER → 2022-06-21 | Outpatient (CLI) | payer OTHER ==
--- NOTE | 2022-06-21 09:46 | CT ---
EXAMINATION TYPE: CT abdomen w con CT DLP: 1537.6 mGycm, Automated exposure control for dose reduction was used. DATE OF EXAM: 06/21/2022 9:23 AM COMPARISON: CT abdomen pelvis most recent from 07/21/2021 CLINICAL INDICATION:Female, 37 years old with history of R10.11 RUQ PAIN; RUQ Abdominal Pain x3days TECHNIQUE: Axial CT of the abdomen . Sagittal and coronal reformats were created on a separate works tation. Contrast used:100ml mL of Isovue 370 with IV Contrast, Oral contrast used: without Oral Contrast FINDINGS: LOWER CHEST: Unremarkable ABDOMEN LIVER: Unremarkable GALLBLADDER AND BILE DUCTS: The gallbladder is surgically absent. PANCREAS: Unremarkable. SPLEEN: Unremarkable. ADRENAL GLANDS: Unremarkable. KIDNEYS AND URETERS: No evidence of hydronephrosis or renal calculus. The ureters are unremarkable. PELVIS BLADDER: Unremarkable REPRODUCTIVE: Unremarkable. ABDOMEN & PELVIS STOMACH AND BOWEL: Post gastric sleeve changes to the stomach. Mild inflammatory changes are seen mattie und the transverse colon on the left. (Series 10 image 85, series 4 image [id number]) No evidence of bowel obstruction. Appendix appears to be surgically absent. PERITONEUM: No evidence of pneumoperitoneum or free fluid. VASCULATURE: No evidence of aortic aneurysm. MUSCULOSKELETAL: No acute osseous abnormalities LYMPH NODES: No gross evidence for lymphadenopathy. Unchanged enlarged left periaortic lymph nodes. SOFT TISSUE/ABDOMINAL WALL: Postsurgical changes to the anterior abdominal wall. Subcutaneous changes fat probable granuloma noted in the right low abdomen subcutaneous fat. IMPRESSION: Focal inflammation adjacent to the transverse colon just left of midline. This is new from prior 07/21. Correlate for colitis and/or epiploic appendagitis.
== END | disposition home or self-care (01) ==
LOC: RADCTMAIN 08:54
PROVIDERS: ATTEND Surgery
DX: R10.11 Right upper quadrant pain (principal)
CPT/HCPCS: 74160; Q9967

== ENCOUNTER → 2022-07-02 | Outpatient (CLI) | payer OTHER ==
--- NOTE | 2022-07-02 21:44 | P.BASOAP ---
Subjective Progress Note Date: 07/02/22 Principal diagnosis: morbid Obesity patient presents today for follow-up. Unfortunately her father is passing away in the ICU at this time. She has been neglecting fluids and feeling somewhat nauseous. She believes its related to stress. Denies abdominal pain. No significant dysphagia symptoms. Patient was tachycardic on arrival. Heart rate returned to 92 after Heart rate returned to 92 after fluid boluses Abdomen: Soft, nondistended, nontender, incisions clean and dry had a long discussion with patient about the importance of fluid hydration. We will reach out to the patient again tomorrow morning. Assessment/Plan Plan: Date: Initial Weight: Initial BMI: Current Weight: Current BMI: Type of Surgery: Total Volume in Band: Previous Volume: Volume Removed: Volume Added: Band Size:
[2022-07-03 13:03] VITALS: BP 138/95; PULSE 92; TEMP 98; BMI 40.2
== END | disposition home or self-care (01) ==
LOC: BARWHC3 11:46
PROVIDERS: ATTEND Surgery
DX: E66.01 Morbid (severe) obesity due to excess calories (principal)
CPT/HCPCS: 99211

== ENCOUNTER → 2022-07-02 | Outpatient (CLI) | payer OTHER ==
[2022-07-02] MEDS: SODIUM CHLORIDE 0.9% 1,000 ML IV SCH ×2 (10:55→12:15)
[2022-07-02 10:56] VITALS: BP 137/93; PULSE 125; RESP 16; TEMP 97.7
== END | disposition home or self-care (01) ==
LOC: PROCWHC3 10:33
PROVIDERS: ATTEND Surgery
DX: E86.0 Dehydration (principal)
CPT/HCPCS: 96360; 96361

== ENCOUNTER → 2022-07-09 | Outpatient (CLI) | payer OTHER ==
[2022-07-09 18:30] LABS: HCT 40.6 % (37.2-46.3); HGB 13.4 g/dL (12.0-15.0); MCH 28.8 pg (27.0-32.0); MCV 87.3 fL (80.0-97.0); Mean Platelet Volume 10.9 fL (9.5-12.2); NRBC Per 100 WBC 0 /100 WBCS (0.0-0.0); Platelet Count 238 X 10*3/uL (140-440); RBC 4.65 X 10*6/uL (4.10-5.20); RDW 12.7 % (11.5-14.5); WBC 8.01 X 10*3/uL (4.50-10.00)
[2022-07-09 19:38] LABS: African American GFR (CKD) 132.3 (60.0-200.0); Albumin 4.6 g/dL (3.8-4.9); Albumin/Globulin Ratio 1.95 (1.60-3.17); Anion Gap 14.1 mmol/L (10.00-18.00); BUN/Creat Ratio 21.04 Ratio (12.00-20.00); Blood Urea Nitrogen 13.4 mg/dL (9.0-27.0); Calcium 9.9 mg/dL (8.7-10.3); Carbon Dioxide 23.2 mmol/L (20.0-27.5); Globulin 2.4 g/dL (1.6-3.3); Non-African American GFR(CKD) 114.2 (60.0-200.0); Total Bilirubin 0.2 mg/dL (0.30-1.20)
== END | disposition home or self-care (01) ==
LOC: LABWHC1 13:40
PROVIDERS: ATTEND Surgery
DX: E66.01 Morbid (severe) obesity due to excess calories (principal); K90.89 Other intestinal malabsorption; E55.9 Vitamin D deficiency, unspecified
CPT/HCPCS: 36415; 80053; 82306; 82607; 82746; 83540; 84425; 85027

== ENCOUNTER → 2022-07-30 | Outpatient (CLI) | payer OTHER ==
[2022-07-30 13:39] VITALS: BP 129/83; PULSE 59; RESP 16; TEMP 97.9; BMI 39.2
--- NOTE | 2022-07-30 13:56 | P.BASOAP ---
Subjective Progress Note Date: 07/30/22 Principal diagnosis: Morbid obesity Patient returns for recheck. She was last seen 1 month ago. Unfortunately her father did pass away that day in the ICU. Her stress level as expected has been somewhat high. She says she has not been focusing on herself as much as previously. She is getting about 50 ounces of liquids daily and about 60-70 g of protein. Heart rate today is normal. Has about 1 episode of emesis weekly. Minimal heartburn. Still taking omeprazole daily. She started taking vitamin D supplements because her mother has osteoporosis. Objective - Vital Signs Vital signs: Vital Signs Temp 97.9 F 07/30/22 13:36 Pulse 59 L 07/30/22 13:36 Resp 16 07/30/22 13:36 BP 129/83 07/30/22 13:36 Pulse Ox FiO2 Intake & Output 07/29/22 07/30/22 07/30/22 18:59 06:59 18:59 Weight 107.048 kg - Exam Abdomen: Soft, nontender, nondistended Assessment/Plan (1) Morbid obesity with BMI of 40.0-44.9, adult Narrative/Plan: Patient doing well at this time. Continue dietary and exercise regimen. Continue daily omeprazole. We'll make next visit 1 month. Check 3 months labs at that time. Plan: Date: 07/30/22 Initial Weight: 122.924 kg Initial BMI: 45.1 Current Weight: 107.048 kg Current BMI: 39.2 Type of Surgery: Vertical Sleeve Gastrectomy Total Volume in Band: Previous Volume: Volume Removed: Volume Added: Band Size:
== END | disposition home or self-care (01) ==
LOC: BARWHC3 13:27
PROVIDERS: ATTEND Surgery
DX: E66.01 Morbid (severe) obesity due to excess calories (principal); Z71.3 Dietary counseling and surveillance
CPT/HCPCS: 97803; 99211

== ENCOUNTER → 2022-10-10 | Outpatient (CLI) | payer OTHER ==
[2022-10-10 13:36] VITALS: BP 125/84; PULSE 92; RESP 16; TEMP 97.8; BMI 36.2
--- NOTE | 2022-10-10 14:50 | P.BASOAP ---
Subjective Progress Note Date: 10/10/22 Principal diagnosis: Morbid obesity Patient returns for recheck. She was last seen 6 weeks ago. She has lost 18 pounds since her last visit. No vomiting. Rare episodes of reflux. Takes omeprazole daily and Zantac when necessary. Drinking 1 protein shake per day. She does prop her bed up occasionally. She is due for lab work. Objective - Vital Signs Vital signs: Vital Signs Temp 97.8 F 10/10/22 13:34 Pulse 92 10/10/22 13:34 Resp 16 10/10/22 13:34 BP 125/84 10/10/22 13:34 Pulse Ox FiO2 Intake & Output 10/09/22 10/10/22 10/10/22 18:59 06:59 18:59 Weight 98.883 kg - Exam Abdomen: Soft, nontender, nondistended Assessment/Plan (1) Morbid obesity with BMI of 40.0-44.9, adult Narrative/Plan: 37-year-old female with morbid obesity. Patient doing well postoperative day. Patient has not been exercising thus far to any significant degree and states she will start doing that more often. Continue antiacids. We'll check 3 months labs. Follow-up 6 weeks. Plan: Date: 10/10/22 Initial Weight: 122.924 kg Initial BMI: 45.1 Current Weight: 98.883 kg Current BMI: 36.2 Type of Surgery: Vertical Sleeve Gastrectomy Total Volume in Band: Previous Volume: Volume Removed: Volume Added: Band Size:
[2022-10-11 00:02] LABS: HCT 40.7 % (37.2-46.3); HGB 13.6 g/dL (12.0-15.0); MCH 30.1 pg (27.0-32.0); MCHC 33.4 g/dL (32.0-37.0); Mean Platelet Volume 10.1 fL (9.5-12.2); NRBC Per 100 WBC 0 /100 WBCS (0.0-0.0); Platelet Count 224 X 10*3/uL (140-440); RBC 4.52 X 10*6/uL (4.10-5.20); RDW 13.2 % (11.5-14.5); WBC 8.06 X 10*3/uL (4.50-10.00)
[2022-10-11 01:23] LABS: African American GFR (CKD) 130.1 (60.0-200.0); Albumin 4.8 g/dL (3.8-4.9); Albumin/Globulin Ratio 2.43 (1.60-3.17); Anion Gap 14.3 mmol/L (10.00-18.00); BUN/Creat Ratio 25.93 Ratio (12.00-20.00); Blood Urea Nitrogen 17.4 mg/dL (9.0-27.0); Calcium 9.5 mg/dL (8.7-10.3); Carbon Dioxide 20.2 mmol/L (20.0-27.5); Non-African American GFR(CKD) 112.2 (60.0-200.0); Potassium 4.8 mmol/L (3.5-5.5); Total Bilirubin 0.3 mg/dL (0.30-1.20); Total Protein 6.8 g/dL (6.2-8.2)
== END ==
LOC: BARWHC3 13:15
PROVIDERS: ATTEND Surgery
DX: E66.01 Morbid (severe) obesity due to excess calories (principal); K90.89 Other intestinal malabsorption; E55.9 Vitamin D deficiency, unspecified; Z88.1 Allergy status to other antibiotic agents; F17.200 Nicotine dependence, unspecified, uncomplicated; Z68.36 Body mass index [BMI] 36.0-36.9, adult
CPT/HCPCS: 80053; 82306; 82607; 82746; 83540; 84425; 85027; 99211

== ENCOUNTER → 2023-03-20 | Outpatient (CLI) | payer OTHER ==
[2023-03-20 21:37] LABS: HCT 41.5 % (37.2-46.3); HGB 13.4 g/dL (12.0-15.0); MCH 30.2 pg (27.0-32.0); MCHC 32.3 g/dL (32.0-37.0); MCV 93.7 fL (80.0-97.0); Mean Platelet Volume 10.6 fL (9.5-12.2); NRBC Per 100 WBC 0 /100 WBCS (0.0-0.0); Platelet Count 240 X 10*3/uL (140-440); RBC 4.43 X 10*6/uL (4.10-5.20); RDW 12.5 % (11.5-14.5); WBC 8.82 X 10*3/uL (4.50-10.00)
[2023-03-20 21:50] LABS: Erythrocyte Sedimentation Rate 11 mm/Hr (0-20)
[2023-03-20 23:33] LABS: EBV-EA (IgG) <0.2 AI; EBV-EBNA(IgG) >8.0 AI; EBV-VCA (IgG) >8.0 AI; EBV-VCA (IgM) 1.1 AI
[2023-03-21 10:54] LABS: IgG Subclass 1 232.2 mg/dL (382.40-928.60); IgG Subclass 2 368.2 mg/dL (241.80-700.30); IgG Subclass 3 41.5 mg/dL (21.82-176.00); IgG Subclass 4 9.7 mg/dL (3.92-86.40)
== END | disposition home or self-care (01) ==
LOC: LABWHC1 14:22
PROVIDERS: ATTEND Internal Medicine
DX: B27.90 Infectious mononucleosis, unspecified without complication (principal)
CPT/HCPCS: 36415; 82787; 85027; 85652; 86140; 86663; 86664; 86665

== ENCOUNTER → 2023-07-08 | Outpatient (CLI) | payer OTHER ==
[2023-07-08 15:19] VITALS: BP 128/78; PULSE 98; RESP 16; TEMP 98; BMI 33.6
--- NOTE | 2023-07-08 15:38 | P.BASOAP ---
Subjective Progress Note Date: 07/08/23 Principal diagnosis: Morbid obesity Patient returns for recheck. Last seen in November. Doing well since last visit. Very rare episodes of regurgitation or reflux. She has lost 9 pounds since her last visit. She has been exercising on off. She is due for annual labs. Says she noticed her weight loss plateau after starting new psychiatric medications. She has had some intermittent lymphadenopathy that has resolved. Objective - Vital Signs Vital signs: Vital Signs Temp 98 F 07/08/23 15:14 Pulse 98 07/08/23 15:14 Resp 16 07/08/23 15:14 BP 128/78 07/08/23 15:14 Pulse Ox FiO2 Intake & Output 07/07/23 07/08/23 07/08/23 18:59 06:59 18:59 Weight 91.626 kg - Exam Abdomen: Soft, nontender, nondistended Assessment/Plan (1) Morbid obesity with BMI of 40.0-44.9, adult Narrative/Plan: Patient doing well at this time. Continue dietary regimen. Began increasing exercise. 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 We will check one year labs. Continue antiacids. Follow-up 6 months. Plan: Date: 07/08/23 Initial Weight: 122.924 kg Initial BMI: 45.1 Current Weight: 91.626 kg Current BMI: 33.6 Type of Surgery: Vertical Sleeve Gastrectomy Total Volume in Band: Previous Volume: Volume Removed: Volume Added: Band Size:
== END ==
LOC: BARWHC3 14:45
PROVIDERS: ATTEND Surgery
DX: E66.01 Morbid (severe) obesity due to excess calories (principal); K21.9 Gastro-esophageal reflux disease without esophagitis; F17.200 Nicotine dependence, unspecified, uncomplicated; Z98.84 Bariatric surgery status; Z71.3 Dietary counseling and surveillance; Z68.33 Body mass index [BMI] 33.0-33.9, adult; Z88.8 Allergy status to other drugs, medicaments and biological substances
CPT/HCPCS: 99211

== ENCOUNTER → 2024-01-06 | Outpatient (CLI) | payer OTHER ==
[2024-01-06 15:55] VITALS: BP 123/83; PULSE 103; RESP 16; TEMP 98.9; BMI 33.1
--- NOTE | 2024-01-06 16:06 | P.BASOAP ---
Subjective Progress Note Date: 01/06/24 Principal diagnosis: Morbid obesity Patient returns for recheck. Doing well since last visit in June. Patient is 1.5 years out from sleeve gastrectomy. Still has mild regurgitation and reflux symptoms. Takes omeprazole 20 mg [id number] once daily. 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 She has lost 3 pounds since her last visit. Patient states she has plateaued. Still restricted. Objective - Vital Signs Vital signs: Vital Signs Temp 98.9 F 01/06/24 15:27 Pulse 103 H 01/06/24 15:27 Resp 16 01/06/24 15:27 BP 123/83 01/06/24 15:27 Pulse Ox FiO2 Intake & Output 01/05/24 01/06/24 01/06/24 18:59 06:59 18:59 Weight 90.265 kg - Exam Abdomen: Soft, nontender, nondistended Assessment/Plan (1) Morbid obesity with BMI of 40.0-44.9, adult Narrative/Plan: Patient doing well at this time. Continue dietary and exercise regimen. Continue omeprazole however tried to switching to every other day and monitor symptoms. Plan recheck this May. Check to your labs at that time. Plan: Date: 01/06/24 Initial Weight: 122.924 kg Initial BMI: 45.1 Current Weight: 90.265 kg Current BMI: 33.1 Type of Surgery: Vertical Sleeve Gastrectomy Total Volume in Band: Previous Volume: Volume Removed: Volume Added: Band Size:
== END | disposition home or self-care (01) ==
LOC: BARWHC3 15:12
PROVIDERS: ATTEND Surgery
DX: E66.01 Morbid (severe) obesity due to excess calories (principal); F12.90 Cannabis use, unspecified, uncomplicated; F17.200 Nicotine dependence, unspecified, uncomplicated; Z98.84 Bariatric surgery status; Z68.42 Body mass index [BMI] 45.0-49.9, adult; Z88.1 Allergy status to other antibiotic agents
CPT/HCPCS: 99211

== ENCOUNTER → 2025-02-24 | Outpatient (CLI) | payer OTHER ==
[2025-02-24 20:38] LABS: Basophils # (A) 0.03 X 10*3/uL (0.00-0.10); Basophils % (A) 0.5 %; Eosinophils # (A) 1.47 X 10*3/uL (0.04-0.35); Eosinophils % (A) 24.4 %; HCT 37.9 % (37.2-46.3); HGB 12.5 g/dL (12.0-15.0); Lymphocytes # (A) 1.71 X 10*3/uL (0.90-5.00); Lymphocytes % (A) 28.4 %; MCH 31.7 pg (27.0-32.0); MCV 96.2 FL (80.0-97.0); Monocytes # (A) 0.29 X 10*3/uL (0.20-1.00); Monocytes % (A) 4.8 %; NRBC Per 100 WBC 0 X 10*3/uL (0.00-0.01); Neutrophils # (A) 2.51 X 10*3/uL (1.80-7.70); Neutrophils % (A) 41.7 %; Platelet Count 203 X 10*3/uL (140-440); RBC 3.94 X 10*6/uL (4.10-5.20); RDW 13.2 % (11.5-14.5); WBC 6.02 X 10*3/uL (4.50-10.00)
[2025-02-25 00:27] LABS: BUN/Creat Ratio 15.62 Ratio (12.00-20.00); Blood Urea Nitrogen 12.5 mg/dL (9.0-27.0); Carbon Dioxide 23.8 mmol/L (21.6-31.8); Chloride 99 mmol/L (96-109); Chol/HDL Ratio 1.86 Ratio; Glucose 84 mg/dL (70-110); LDL Cholesterol,Calculated 82.5 mg/dL (0.0-131.0); Potassium 4.6 mmol/L (3.5-5.5); Sodium 137 mmol/L (135-145); VLDL Calculation 12.52 mg/dL (5.00-40.00)
[2025-02-25 00:28] LABS: ALT 30 U/L (8-44); AST 28 U/L (13-35); Albumin 4.4 g/dL (3.8-4.9); Albumin/Globulin Ratio 2.32 Ratio (1.60-3.17); Alkaline Phosphatase 50 U/L (41-126); Calcium 9.3 mg/dL (8.7-10.3); Globulin 1.9 g/dL (1.6-3.3); Total Bilirubin 0.4 mg/dL (0.3-1.2); Total Protein 6.3 g/dL (6.2-8.2)
== END | disposition home or self-care (01) ==
LOC: LABWHC1 11:22
PROVIDERS: ATTEND Internal Medicine
DX: Z13.220 Encounter for screening for lipoid disorders (principal); I10 Essential (primary) hypertension; R53.83 Other fatigue; E55.9 Vitamin D deficiency, unspecified
CPT/HCPCS: 36415; 80053; 80061; 82306; 84443; 85025